=== PATIENT | male | born 1990 | race Caucasian/White ===

== ENCOUNTER 2018-04-25 02:51 | Emergency (ER) | payer OTHER, SELFPAY ==
[2018-04-25 02:58] VITALS: BP 128/75; PULSE 89; RESP 16; TEMP 36.5; O2SAT 99; BMI 25.1
[2018-04-25 03:15] LABS: Glucose Urine UA NEGATIVE (Negative); Nitrite Urine UA NEGATIVE (Negative); Occult Blood Urine UA 3+ (Negative); Protein Urine UA 2+ (Negative); Specific Gravity Urine UA 1.025 (1.000-1.035); pH Urine UA 6.5 (4.5-8.0)
[2018-04-25 03:19] LABS: Appearance Urine UA Cloudy; Bilirubin Urine UA Negative (NEGATIVE)
[2018-04-25 03:21] LABS: Color Urine UA RED
[2018-04-25 03:23] LABS: Bacteria Urine None Seen
[2018-04-25] MEDS: KETOROLAC 30 MG/ML VIAL 15 MG IV (03:24)
[2018-04-25] MEDS: ONDANSETRON 4 MG/2 ML INJ IV (03:24)
[2018-04-25] MEDS: SODIUM CHLORIDE 0.9% 1,000 ML 1000 ML IV (03:24)
[2018-04-25 03:31] LABS: Add Manual Diff / Slide Review NO; Basophils Absolute Auto 100 /uL (0-100); Eosinophils Absolute Auto 300 /uL (0-450); Eosinophils Percent Auto 5.1 % (2-4); Hematocrit 43.2 % (41-53); Hemoglobin 14.6 g/dL (13.5-17.5); Lymphocytes Absolute Auto 2600 /uL (1100-4500); Lymphocytes Percent Auto 46.4 % (25-40); Mean Corpuscular HGB Conc 33.9 % (30-36); Mean Corpuscular Hemoglobin 30.5 PG (26-34); Mean Corpuscular Volume 90.1 fL (80-100); Monocytes Absolute Auto 500 /uL (0-900); Monocytes Percent Auto 8.1 % (3-14); Neutrophils Absolute Auto 2200 /uL (1500-7000); Neutrophils Percent Auto 39.4 % (50-75); Platelet Count 271 X10^3/uL (150-400); Red Blood Cell Count 4.79 X10^6/uL (4.5-5.9); Red Cell Distribution Width 13.5 % (11.6-14.8); White Blood Cell Count 5.7 X10^3/uL (4.5-11.0)
[2018-04-25 03:34] LABS: Culture Indicated Urine Cult Not Indicated; RBC Urine >100/HPF (0-5/HPF); WBC Urine 0-1/HPF (0-5/HPF)
--- NOTE | 2018-04-25 03:35 | ED.MALEGU ---
HPI - Male Genitourinary General Chief complaint: Urogenital-Male Stated complaint: LEFT SIDE PAIN Time Seen by Provider: 04/25/18 02:55 Source: patient and family Mode of arrival: ambulatory Limitations: no limitations History of Present Illness HPI Narrative: 27-year-old male smoker with history of kidney stones presents with his significant other in the chief complaint of sudden onset left flank pain with radiation into his groin. He denies provocation or palliation. He denies fever or chills. He has had no dysuria, frequency or urgency. He denies any injury. He states this feels similar to kidney stone he suffered about 8 years ago Onset (ago): hour(s) Duration: intermittent and improved Location: left flank Radiation: left inguinal region Quality: burning and stabbing Relieving factors: none Exacerbating factors: none new medication Related Data Previous Rx's Medication Instructions Recorded bacitracin zinc 500 unit TOPICAL BID 7 Days #0 gm 07/12/16 tramadol 0 tab PO Q6HP PRN #8 tab 07/12/16 hydrocodone-acetaminophen 1 tab PO Q4-6H PRN #10 tab 04/25/18 ketorolac 10 mg PO Q6H PRN #14 tab 04/25/18 ondansetron 4 mg PO TID-QID PRN #10 tab 04/25/18 tamsulosin [Flomax] 0.4 mg PO DAILY #10 cap 04/25/18 Allergies Allergy/AdvReac Type Severity Reaction Status Date / Time No Known Drug Allergies Allergy Verified 04/25/18 02:58 Review of Systems Constitutional Denies chills, Denies fever(s), Denies lethargy and Denies weakness Eyes Denies change in vision, Denies eye discharge, Denies irritation and Denies loss of vision ENT Ears, Nose, Mouth, and Throat: Denies change in voice, Denies neck pain and Denies sore throat Cardiovascular Denies chest pain, Denies irregular heart rhythm, Denies lightheadedness, Denies palpitations, Denies dyspnea, Denies dyspnea on exertion and Denies orthopnea Respiratory Denies cough, Denies dyspnea, Denies dyspnea on exertion and Denies wheezing Gastrointestinal Gastrointestinal: Denies abdominal pain, Denies change in bowel habits, Denies diarrhea, Denies nausea and Denies vomiting Genitourinary Denies hematuria, Reports flank pain, Denies urinary incontinence and Denies urinary urgency Musculoskeletal Denies neck pain Integumentary/Breasts Denies pruritus, Denies erythema, Denies rash and Denies wounds Neurologic Denies confusion, Denies loss of vision and Denies weakness Psychiatric Denies anxiety, Denies confusion, Denies depression, Denies homicidal ideation and Denies suicidal ideation Endocrine Denies palpitations Hematologic/Lymphatic Denies easy bruising Allergic/Immunologic Denies wheezing PFSH Social History Smoking Status: Current every day smoker Social History Smoking Status: Current every day smoker Exam Narrative Exam Narrative: GENERAL: 29-year-old male is in mild distress, rubbing his left flank and groin HEAD: Atraumatic. Normocephalic. No temporal or scalp tenderness. EYES: Pupils equal round and reactive. Extraocular motions intact. No scleral icterus. No injection or drainage. ENT: Nose without bleeding, purulent drainage or septal hematoma. Throat without erythema, tonsillar hypertrophy or exudate. Uvula midline. Airway patent. NECK: Trachea midline. No JVD or lymphadenopathy. Supple, nontender, no meningeal signs. CARDIOVASCULAR: Regular rate and rhythm without murmurs, gallops, or rubs. RESPIRATORY: Clear to auscultation. Breath sounds equal bilaterally. No wheezes, rales, or rhonchi. GASTROINTESTINAL: Abdomen soft, non-tender, nondistended. No hepato-splenomegaly, or palpable masses. No guarding. EXTREMITIES: No clubbing, cyanosis, or edema. No joint tenderness, effusion, or edema noted. BACK: Nontender without deformity or crepitance. No flank tenderness. NEURO: AOx3. SKIN: No rash or erythema. Initial Vital Signs Initial Vital Signs: Vital Signs Temperature 97.7 F 04/25/18 02:58 Pulse Rate 89 04/25/18 02:58 Respiratory Rate 16 04/25/18 02:58 Blood Pressure 128/75 04/25/18 02:58 Pulse Oximetry 99 04/25/18 02:58 Course Orders Ordered: ED Orders 04/25/18 03:01 Urinalysis Sreen (Dip Only) Stat Urine Microscopic Stat 04/25/18 03:23 Basic Metabolic Panel Stat Complete Blood Count AUTO DIFF Stat Discontinued Medications Sodium Chloride (Normal Saline 0.9%) 1,000 mls @ 1,000 mls/hr IV BOLUS ONE Stop: 04/25/18 04:11 Last Admin: 04/25/18 03:24 Dose: 1,000 mls/hr Ketorolac Tromethamine (Toradol) 15 mg IV NOW ONE Stop: 04/25/18 03:13 Last Admin: 04/25/18 03:24 Dose: 15 mg Ondansetron HCl (Zofran) 4 mg IV NOW ONE Stop: 04/25/18 03:13 Last Admin: 04/25/18 03:24 Dose: 4 mg Reevaluation(s) Reevaluation #1: Patient has had complete resolution of symptoms after above-stated therapies Vital Signs - 8 hr 04/25/18 02:58 Temperature 97.7 F Pulse Rate 89 Respiratory Rate 16 Blood Pressure 128/75 Pulse Oximetry 99 MDM - Male Genitourinary Lab Data Result diagrams: 04/25/18 03:23 04/25/18 03:23 Lab Results 04/25/18 04/25/18 04/25/18 Range/Units 03:01 03:23 03:23 WBC 5.7 (4.5-11.0) X10^3/uL RBC 4.79 (4.5-5.9) X10^6/uL Hgb 14.6 (13.5-17.5) g/dL Hct 43.2 (41-53) % MCV 90.1 (80-100) fL MCH 30.5 (26-34) PG MCHC 33.9 (30-36) % RDW 13.5 (11.6-14.8) % Plt Count 271 (150-400) X10^3/uL Neut % (Auto) 39.4 L (50-75) % Lymph % (Auto) 46.4 H (25-40) % [place] % (Auto) 8.1 (3-14) % Eos % (Auto) 5.1 H (2-4) % Baso % (Auto) 1.0 (0-2) % Neut # (Auto) 2200 (9837-5915) /uL Lymph # (Auto) 2600 (7613-7948) /uL [place] # (Auto) 500 (0-900) /uL Eos # (Auto) 300 (0-450) /uL Baso # (Auto) 100 (0-100) /uL Sodium 139 (137-145) mmol/L Potassium 3.9 (3.4-5.1) mmol/L Chloride 105 (98-107) mmol/L Carbon Dioxide 27 (22-32) mmol/L BUN 12 (9-20) mg/dL Creatinine 0.80 (0.66-1.25) mg/dL Estimated GFR > 60.0 (>60) mL/min BUN/Creatinine Ratio 15.0 (6-22) Glucose 89 (70-100) mg/dL Calcium 8.7 (8.4-10.2) mg/dL Urine Color Red Urine Appearance Cloudy Urine pH 6.5 (4.5-8.0) Ur Specific [place] 1.025 (1.000-1.035) Urine Protein 2+ H (Negative) Urine Glucose (UA) Negative (Negative) g/dL 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 Cult not indicated MDM Narrative Medical decision making narrative: Multiple etiologies for patient's symptoms considered including: [Ureterolithiasis versus pyelonephritis versus bowel trouble reverse musculoskeletal injury versus other] Patient's symptoms improved or duration of stay with above-stated therapies. Findings and discharge diagnosis discussed with patient/family followed by verbalization of understanding Return precautions discussed with patient/family whom verbalize understanding. Discharge Plan Departure Patient Disposition: Home Clinical Impression: Ureterolithiasis Instructions: DI for Kidney Stones Activity Restrictions/Additional Instructions: *You have been diagnosed with [ kidney stones] *What to do: *Take medications as directed *Follow up with your primary care provider in 2-3 days, call for an appointment. Let them know you were seen in the Emergency Department and that we ask that you be seen in follow up. Also you have been given contact info for a local urologist should you need help with ongoing pain *Return to ER if you should have any new, worsening or concerning symptoms, such as [worsening pain, persistent vomiting, fever greater than 101 F. ] Prescriptions: New hydrocodone-acetaminophen 5-325 mg tablet 1 tab PO Q4-6H PRN (Reason: pain) Qty: 10 RF: 0 ketorolac 10 mg tablet 10 mg PO Q6H PRN (Reason: pain) Qty: 14 RF: 0 tamsulosin [Flomax] 0.4 mg capsule 0.4 mg PO DAILY Qty: 10 RF: 0 ondansetron 4 mg tablet,disintegrating 4 mg PO TID-QID PRN (Reason: nausea and vomiting) Qty: 10 RF: 0 No Action bacitracin zinc 28.35 GM ointment 500 unit Topical BID 7 Days Qty: 0 RF: 0 tramadol 50 MG tablet PO Q6HP PRNQty: 8 RF: 0 Referrals: William Abdul MD [Non-Staff] -
[2018-04-25 03:41] LABS: Blood Urea Nitrogen 12 mg/dL (9-20); Calcium 8.7 mg/dL (8.4-10.2); Carbon Dioxide 27 mmol/L (22-32); Chloride 105 mmol/L (98-107); Estimated Glomerular Filt Rate > 60.0 mL/min (>60); Glucose 89 mg/dL (70-100); HEMOLYSIS < 15 (0-50); Potassium 3.9 mmol/L (3.4-5.1); Sodium 139 mmol/L (137-145)
--- NOTE | 2018-04-25 04:19 | ED_ITS ---
HPI - Male Genitourinary General Chief complaint: Urogenital-Male Stated complaint: LEFT SIDE PAIN Time Seen by Provider: 04/25/18 02:55 Source: patient and family Mode of arrival: ambulatory Limitations: no limitations History of Present Illness HPI Narrative: 27-year-old male smoker with history of kidney stones presents with his significant other in the chief complaint of sudden onset left flank pain with radiation into his groin. He denies provocation or palliation. He denies fever or chills. He has had no dysuria, frequency or urgency. He denies any injury. He states this feels similar to kidney stone he suffered about 8 years ago Onset (ago): hour(s) Duration: intermittent and improved Location: left flank Radiation: left inguinal region Quality: burning and stabbing Relieving factors: none Exacerbating factors: none new medication Related Data Previous Rx's Medication Instructions Recorded bacitracin zinc 500 unit TOPICAL BID 7 Days #0 gm 07/12/16 tramadol 0 tab PO Q6HP PRN #8 tab 07/12/16 hydrocodone-acetaminophen 1 tab PO Q4-6H PRN #10 tab 04/25/18 ketorolac 10 mg PO Q6H PRN #14 tab 04/25/18 ondansetron 4 mg PO TID-QID PRN #10 tab 04/25/18 tamsulosin [Flomax] 0.4 mg PO DAILY #10 cap 04/25/18 Allergies Allergy/AdvReac Type Severity Reaction Status Date / Time No Known Drug Allergies Allergy Verified 04/25/18 02:58 Review of Systems Constitutional Denies chills, Denies fever(s), Denies lethargy and Denies weakness Eyes Denies change in vision, Denies eye discharge, Denies irritation and Denies loss of vision ENT Ears, Nose, Mouth, and Throat: Denies change in voice, Denies neck pain and Denies sore throat Cardiovascular Denies chest pain, Denies irregular heart rhythm, Denies lightheadedness, Denies palpitations, Denies dyspnea, Denies dyspnea on exertion and Denies orthopnea Respiratory Denies cough, Denies dyspnea, Denies dyspnea on exertion and Denies wheezing Gastrointestinal Gastrointestinal: Denies abdominal pain, Denies change in bowel habits, Denies diarrhea, Denies nausea and Denies vomiting Genitourinary Denies hematuria, Reports flank pain, Denies urinary incontinence and Denies urinary urgency Musculoskeletal Denies neck pain Integumentary/Breasts Denies pruritus, Denies erythema, Denies rash and Denies wounds Neurologic Denies confusion, Denies loss of vision and Denies weakness Psychiatric Denies anxiety, Denies confusion, Denies depression, Denies homicidal ideation and Denies suicidal ideation Endocrine Denies palpitations Hematologic/Lymphatic Denies easy bruising Allergic/Immunologic Denies wheezing PFSH Social History Smoking Status: Current every day smoker Social History Smoking Status: Current every day smoker Exam Narrative Exam Narrative: GENERAL: 29-year-old male is in mild distress, rubbing his left flank and groin HEAD: Atraumatic. Normocephalic. No temporal or scalp tenderness. EYES: Pupils equal round and reactive. Extraocular motions intact. No scleral icterus. No injection or drainage. ENT: Nose without bleeding, purulent drainage or septal hematoma. Throat without erythema, tonsillar hypertrophy or exudate. Uvula midline. Airway patent. NECK: Trachea midline. No JVD or lymphadenopathy. Supple, nontender, no meningeal signs. CARDIOVASCULAR: Regular rate and rhythm without murmurs, gallops, or rubs. RESPIRATORY: Clear to auscultation. Breath sounds equal bilaterally. No wheezes , rales, or rhonchi. GASTROINTESTINAL: Abdomen soft, non-tender, nondistended. No hepato-splenomegaly , or palpable masses. No guarding. EXTREMITIES: No clubbing, cyanosis, or edema. No joint tenderness, effusion, or edema noted. BACK: Nontender without deformity or crepitance. No flank tenderness. NEURO: AOx3. SKIN: No rash or erythema. Initial Vital Signs Initial Vital Signs: Vital Signs Temperature 97.7 F 04/25/18 02:58 Pulse Rate 89 04/25/18 02:58 Respiratory Rate 16 04/25/18 02:58 Blood Pressure 128/75 04/25/18 02:58 Pulse Oximetry 99 04/25/18 02:58 Course Orders Ordered: ED Orders 04/25/18 03:01 Urinalysis Sreen (Dip Only) Stat Urine Microscopic Stat 04/25/18 03:23 Basic Metabolic Panel Stat Complete Blood Count AUTO DIFF Stat Discontinued Medications Sodium Chloride (Normal Saline 0.9%) 1,000 mls @ 1,000 mls/hr IV BOLUS ONE Stop: 04/25/18 04:11 Last Admin: 04/25/18 03:24 Dose: 1,000 mls/hr Ketorolac Tromethamine (Toradol) 15 mg IV NOW ONE Stop: 04/25/18 03:13 Last Admin: 04/25/18 03:24 Dose: 15 mg Ondansetron HCl (Zofran) 4 mg IV NOW ONE Stop: 04/25/18 03:13 Last Admin: 04/25/18 03:24 Dose: 4 mg Reevaluation(s) Reevaluation #1: Patient has had complete resolution of symptoms after above- stated therapies Vital Signs - 8 hr 04/25/18 02:58 Temperature 97.7 F Pulse Rate 89 Respiratory Rate 16 Blood Pressure 128/75 Pulse Oximetry 99 MDM - Male Genitourinary Lab Data Result diagrams: 04/25/18 03:23 04/25/18 03:23 Lab Results 04/25/18 04/25/18 04/25/18 Range/Units 03:01 03:23 03:23 WBC 5.7 (4.5-11.0) X10^3/uL RBC 4.79 (4.5-5.9) X10^6/uL Hgb 14.6 (13.5-17.5) g/dL Hct 43.2 (41-53) % MCV 90.1 (80-100) fL MCH 30.5 (26-34) PG MCHC 33.9 (30-36) % RDW 13.5 (11.6-14.8) % Plt Count 271 (150-400) X10^3/uL Neut % (Auto) 39.4 L (50-75) % Lymph % (Auto) 46.4 H (25-40) % [place] % (Auto) 8.1 (3-14) % Eos % (Auto) 5.1 H (2-4) % Baso % (Auto) 1.0 (0-2) % Neut # (Auto) 2200 (5935-3498) /uL Lymph # (Auto) 2600 (4611-2035) /uL [place] # (Auto) 500 (0-900) /uL Eos # (Auto) 300 (0-450) /uL Baso # (Auto) 100 (0-100) /uL Sodium 139 (137-145) mmol/L Potassium 3.9 (3.4-5.1) mmol/L Chloride 105 (98-107) mmol/L Carbon Dioxide 27 (22-32) mmol/L BUN 12 (9-20) mg/dL Creatinine 0.80 (0.66-1.25) mg/dL Estimated GFR > 60.0 (>60) mL/min BUN/Creatinine Ratio 15.0 (6-22) Glucose 89 (70-100) mg/dL Calcium 8.7 (8.4-10.2) mg/dL Urine Color Red Urine Appearance Cloudy Urine pH 6.5 (4.5-8.0) Ur Specific [place] 1.025 (1.000-1.035) Urine Protein 2+ H (Negative) Urine Glucose (UA) Negative (Negative) g/dL 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 Cult not indicated MDM Narrative Medical decision making narrative: Multiple etiologies for patient's symptoms considered including: [Ureterolithiasis versus pyelonephritis versus bowel trouble reverse musculoskeletal injury versus other] Patient's symptoms improved or duration of stay with above-stated therapies. Findings and discharge diagnosis discussed with patient/family followed by verbalization of understanding Return precautions discussed with patient/family whom verbalize understanding. Discharge Plan Departure Patient Disposition: Home Clinical Impression: Ureterolithiasis Instructions: DI for Kidney Stones Activity Restrictions/Additional Instructions: *You have been diagnosed with [ kidney stones] *What to do: *Take medications as directed *Follow up with your primary care provider in 2-3 days, call for an appointment. Let them know you were seen in the Emergency Department and that we ask that you be seen in follow up. Also you have been given contact info for a local urologist should you need help with ongoing pain *Return to ER if you should have any new, worsening or concerning symptoms , such as [worsening pain, persistent vomiting, fever greater than 101 F. ] Prescriptions: New hydrocodone-acetaminophen 5-325 mg tablet 1 tab PO Q4-6H PRN (Reason: pain) Qty: 10 RF: 0 ketorolac 10 mg tablet 10 mg PO Q6H PRN (Reason: pain) Qty: 14 RF: 0 tamsulosin [Flomax] 0.4 mg capsule 0.4 mg PO DAILY Qty: 10 RF: 0 ondansetron 4 mg tablet,disintegrating 4 mg PO TID-QID PRN (Reason: nausea and vomiting) Qty: 10 RF: 0 No Action bacitracin zinc 28.35 GM ointment 500 unit Topical BID 7 Days Qty: 0 RF: 0 tramadol 50 MG tablet PO Q6HP PRNQty: 8 RF: 0 Referrals: William Abdul MD [Non-Staff] -
[2018-04-25 04:21] VITALS: BP 114/65; PULSE 64; RESP 15; O2SAT 100
== END 2018-04-25 04:22 | disposition home or self-care (01) ==
PROVIDERS: Emergency Provider Emergency Medicine
DX: N20.1 Calculus of ureter (principal)
CPT/HCPCS: 36591; 80048; 81003; 81015; 85025; 96361; 96374; 96375; 99283; 99284; J1885; J2405

== ENCOUNTER 2018-05-08 18:30 | Emergency (ER) | payer OTHER, SELFPAY ==
[2018-05-08 18:34] VITALS: BP 131/89; PULSE 87; RESP 16; TEMP 35.9; O2SAT 98; BMI 31.3
[2018-05-08 18:59] LABS: Bacteria Urine None Seen
[2018-05-08 19:01] LABS: Add Manual Diff / Slide Review NO; Basophils Absolute Auto 100 /uL (0-100); Basophils Percent Auto 0.8 % (0-2); Eosinophils Absolute Auto 100 /uL (0-450); Eosinophils Percent Auto 1.7 % (2-4); Hematocrit 44.3 % (41-53); Hemoglobin 14.9 g/dL (13.5-17.5); Lymphocytes Absolute Auto 2400 /uL (1100-4500); Lymphocytes Percent Auto 33.3 % (25-40); Mean Corpuscular HGB Conc 33.6 % (30-36); Mean Corpuscular Hemoglobin 30.4 PG (26-34); Mean Corpuscular Volume 90.4 fL (80-100); Monocytes Absolute Auto 500 /uL (0-900); Monocytes Percent Auto 6.6 % (3-14); Neutrophils Absolute Auto 4100 /uL (1500-7000); Neutrophils Percent Auto 57.6 % (50-75); Platelet Count 254 X10^3/uL (150-400); Red Cell Distribution Width 13.2 % (11.6-14.8); White Blood Cell Count 7.1 X10^3/uL (4.5-11.0)
[2018-05-08 19:10] LABS: RBC Urine 30-100/HPF (0-5/HPF); WBC Urine 0-1/HPF (0-5/HPF)
[2018-05-08 19:11] LABS: Culture Indicated Urine Cult Not Indicated; Mucus Urine 3+ (Negative); Squamous Epithelial Cell Urine 0-1 /HPF
[2018-05-08 19:13] LABS: Alanine Aminotransferase 43 IU/L (21-72); Albumin 4.7 g/dL (3.5-5.0); Albumin Globulin Ratio 1.6 (1.0-2.8); Alkaline Phosphatase 53 U/L (38-126); Aspartate Aminotransferase 31 IU/L (17-59); BUN Creatinine Ratio 15.6 (6-22); Blood Urea Nitrogen 14 mg/dL (9-20); Calcium 9.5 mg/dL (8.4-10.2); Carbon Dioxide 29 mmol/L (22-32); Chloride 100 mmol/L (98-107); Estimated Glomerular Filt Rate > 60.0 mL/min (>60); Globulin 2.9 g/dL (1.7-4.1); Glucose 93 mg/dL (70-100); HEMOLYSIS < 15 (0-50); Lipase 34 U/L (23-300); Potassium 3.7 mmol/L (3.4-5.1); Sodium 139 mmol/L (137-145); Total Protein 7.6 g/dL (6.3-8.2)
--- NOTE | 2018-05-08 19:16 | ED.ABDPAIN ---
HPI - Abdominal Pain <Denisa Hernandez PA-C - Last Filed: 05/08/18 22:04> General Chief Complaint: Abdominal Pain Stated Complaint: Thinks kidney stone Time Seen by Provider: 05/08/18 18:56 Source: patient Mode of arrival: ambulatory Limitations: no limitations History of Present Illness HPI narrative: This 27-year-old male returns with recurrent left-sided flank/abdominal pain. He was seen here a couple of weeks ago with pain that he felt was a recurrent kidney stone. He states that he was actually feeling better after last visit and went snowboarding last Friday, however yesterday he started having pain in the flank, low back and left lower abdomen which has progressively worsened today. He states that the pain is ?stabbing?, and does not seem to have exacerbating or alleviating features. He states he has had hematuria with kidney stones in the past but none today. He denies any dysuria, frequency or urgency. He denies any STD concerns or discharge. He denies any bowel habit changes. He denies any chest pain, dyspnea, or recent illness. He felt warm yesterday and thought he might have had a fever, no temperature taken. Related Data Previous Rx's Medication Instructions Recorded bacitracin zinc 500 unit TOPICAL BID 7 Days #0 gm 07/12/16 tramadol 0 tab PO Q6HP PRN #8 tab 07/12/16 hydrocodone-acetaminophen 1 tab PO Q4-6H PRN #10 tab 04/25/18 ketorolac 10 mg PO Q6H PRN #14 tab 04/25/18 ondansetron 4 mg PO TID-QID PRN #10 tab 04/25/18 tamsulosin [Flomax] 0.4 mg PO DAILY #10 cap 04/25/18 hydrocodone-acetaminophen [[place]] 1 tab PO Q4-6H PRN #10 tab 05/08/18 tamsulosin 0.4 mg PO DAILY #7 cap 05/08/18 Allergies Allergy/AdvReac Type Severity Reaction Status Date / Time No Known Drug Allergies Allergy Verified 05/08/18 18:34 Review of Systems <Denisa Hernandez PA-C - Last Filed: 05/08/18 22:04> Review of Systems ROS Unobtainable: All systems reviewed & are unremarkable except as noted in HPI and below PFSH <Denisa Hernandez PA-C - Last Filed: 05/08/18 22:04> Medical History Ureterolithiasis (Resolved) Surgical History No pertinent past surgical history (Chronic) Family History Father Kidney stones Diverticulitis Social History Smoking Status: Current every day smoker Social History Smoking Status: Current every day smoker Comment: + THC Exam <Denisa Hernandez PA-C - Last Filed: 05/08/18 22:04> Narrative Exam Narrative: GENERAL APPEARANCE: Patient appears somewhat uncomfortable, but in NAD HEENT: PERRL, EOMI, no scleral icterus NECK: Supple LUNGS: Clear to auscultation bilaterally. HEART: Rate and rhythm regular, normal S1 and S2, no S3 or S4. ABDOMEN: Soft, nondistended, bowel sounds present x 4 quadrants, no masses palpable, no hepatosplenomegaly. No CVAT. Tender from left lateral flank to left lower quadrant, most over the left lower quadrant, +rebound. No tenderness elsewhere in the abdomen EXTREMITIES: No edema, no cyanosis DERMATOLOGIC: No jaundice or exanthem NEUROLOGIC: Alert and oriented with normal speech and coordination Initial Vital Signs Initial Vital Signs: Vital Signs Temperature 96.7 F L 05/08/18 18:34 Pulse Rate 87 05/08/18 18:34 Respiratory Rate 16 05/08/18 18:34 Blood Pressure 131/89 05/08/18 18:34 Pulse Oximetry 98 05/08/18 18:34 <Bakari Crawford MD - Last Filed: 05/09/18 02:30> Initial Vital Signs Initial Vital Signs: Vital Signs Temperature 96.7 F L 05/08/18 18:34 Pulse Rate 87 05/08/18 18:34 Respiratory Rate 16 05/08/18 18:34 Blood Pressure 131/89 05/08/18 18:34 Pulse Oximetry 98 05/08/18 18:34 Course <Denisa Hernandez PA-C - Last Filed: 05/08/18 22:04> Additional Information: Patient is feeling significantly improved prior to discharge and feels like he can go home and rest. He was started on Flomax, will continue pain medications. He has out of state insurance and is able to reach them tomorrow, so have given him local Urology information and he will talk with them about referral for appointment early next week. He agreed to return to ED if any acutely worsening symptoms over the weekend. Reviewed findings and plan with Dr. Crawford who is in agreement Orders Ordered: ED Orders 05/08/18 18:50 Complete Blood Count AUTO DIFF Stat Comprehensive Metabolic Panel Stat Lipase Stat Partial Thromboplastin Time Stat Prothrombin Time INR Stat Urine Microscopic Stat 05/08/18 19:30 CT abdomen pelvis w con Stat Discontinued Medications Hydrocodone Bitart/Acetaminophen (Vicodin Prepack) 1 bottle MISC SEEINSTR ONE Stop: 05/08/18 21:22 Last Admin: 05/08/18 21:39 Dose: 1 bottle Sodium Chloride (Normal Saline 0.9%) 1,000 mls @ 1,000 mls/hr IV BOLUS ONE Stop: 05/08/18 20:29 Last Infusion: 05/08/18 21:52 Dose: 0 mls/hr Admin: 05/08/18 19:51 Dose: 1,000 mls/hr Ketorolac Tromethamine (Toradol) 30 mg IV NOW ONE Stop: 05/08/18 19:31 Last Admin: 05/08/18 19:52 Dose: 30 mg Ondansetron HCl (Zofran) 4 mg IV NOW ONE Stop: 05/08/18 19:31 Last Admin: 05/08/18 19:52 Dose: 4 mg Tamsulosin HCl (Flomax) 0.4 mg PO NOW ONE Stop: 05/08/18 21:22 Last Admin: 05/08/18 21:39 Dose: 0.4 mg Vital Signs - 8 hr 05/08/18 18:34 05/08/18 21:34 05/08/18 21:53 Temperature 96.7 F L Pulse Rate 87 63 63 Respiratory Rate 16 16 14 Blood Pressure 131/89 117/63 Blood Pressure [Left Arm] 117/63 Pulse Oximetry 98 98 98 <Bakari Crawford MD - Last Filed: 05/09/18 02:30> Orders Ordered: ED Orders 05/08/18 18:50 Complete Blood Count AUTO DIFF Stat Comprehensive Metabolic Panel Stat Lipase Stat Partial Thromboplastin Time Stat Prothrombin Time INR Stat Urine Microscopic Stat 05/08/18 19:30 CT abdomen pelvis w con Stat Discontinued Medications Hydrocodone Bitart/Acetaminophen (Vicodin Prepack) 1 bottle MISC SEEINSTR ONE Stop: 05/08/18 21:22 Last Admin: 05/08/18 21:39 Dose: 1 bottle Sodium Chloride (Normal Saline 0.9%) 1,000 mls @ 1,000 mls/hr IV BOLUS ONE Stop: 05/08/18 20:29 Last Infusion: 05/08/18 21:52 Dose: 0 mls/hr Admin: 05/08/18 19:51 Dose: 1,000 mls/hr Ketorolac Tromethamine (Toradol) 30 mg IV NOW ONE Stop: 05/08/18 19:31 Last Admin: 05/08/18 19:52 Dose: 30 mg Ondansetron HCl (Zofran) 4 mg IV NOW ONE Stop: 05/08/18 19:31 Last Admin: 05/08/18 19:52 Dose: 4 mg Tamsulosin HCl (Flomax) 0.4 mg PO NOW ONE Stop: 05/08/18 21:22 Last Admin: 05/08/18 21:39 Dose: 0.4 mg Vital Signs - 8 hr 05/08/18 18:34 05/08/18 21:34 05/08/18 21:53 Temperature 96.7 F L Pulse Rate 87 63 63 Respiratory Rate 16 16 14 Blood Pressure 131/89 117/63 Blood Pressure [Left Arm] 117/63 Pulse Oximetry 98 98 98 MDM - Abdominal Pain <Denisa Hernandez PA-C - Last Filed: 05/08/18 22:04> Lab Data Attestation: I reviewed the patient's lab results. Result diagrams: 05/08/18 18:50 05/08/18 18:50 Lab Results 05/08/18 05/08/18 05/08/18 Range/Units 18:50 18:50 18:50 WBC 7.1 (4.5-11.0) X10^3/uL RBC 4.90 (4.5-5.9) X10^6/uL Hgb 14.9 (13.5-17.5) g/dL Hct 44.3 (41-53) % MCV 90.4 (80-100) fL MCH 30.4 (26-34) PG MCHC 33.6 (30-36) % RDW 13.2 (11.6-14.8) % Plt Count 254 (150-400) X10^3/uL Neut % (Auto) 57.6 (50-75) % Lymph % (Auto) 33.3 (25-40) % [place] % (Auto) 6.6 (3-14) % Eos % (Auto) 1.7 L (2-4) % Baso % (Auto) 0.8 (0-2) % Neut # (Auto) 4100 (4795-6738) /uL Lymph # (Auto) 2400 (8190-9408) /uL [place] # (Auto) 500 (0-900) /uL Eos # (Auto) 100 (0-450) /uL Baso # (Auto) 100 (0-100) /uL PT 12.3 (10.1-12.7) SECONDS INR 1.1 (0.9-1.3) APTT 32 (26.4-36.2) SECONDS Sodium 139 (137-145) mmol/L Potassium 3.7 (3.4-5.1) mmol/L Chloride 100 (98-107) mmol/L Carbon Dioxide 29 (22-32) mmol/L BUN 14 (9-20) mg/dL Creatinine 0.90 (0.66-1.25) mg/dL Estimated GFR > 60.0 (>60) mL/min BUN/Creatinine Ratio 15.6 (6-22) Glucose 93 (70-100) mg/dL Calcium 9.5 (8.4-10.2) mg/dL Total Bilirubin 1.0 (0.2-1.3) mg/dL AST 31 (17-59) IU/L ALT 43 (21-72) IU/L Alkaline Phosphatase 53 (38-126) U/L Total Protein 7.6 (6.3-8.2) g/dL Albumin 4.7 (3.5-5.0) g/dL Globulin 2.9 (1.7-4.1) g/dL Albumin/Globulin Ratio 1.6 (1.0-2.8) Lipase 34 (23-300) U/L Urine RBC (0-5/HPF) Urine WBC (0-5/HPF) Ur Squamous Epith Cells Urine Bacteria (None) Urine Mucus (Negative) Ur Culture Indicated? 05/08/18 Range/Units 18:50 WBC (4.5-11.0) X10^3/uL RBC (4.5-5.9) X10^6/uL Hgb (13.5-17.5) g/dL Hct (41-53) % MCV (80-100) fL MCH (26-34) PG MCHC (30-36) % RDW (11.6-14.8) % Plt Count (150-400) X10^3/uL Neut % (Auto) (50-75) % Lymph % (Auto) (25-40) % [place] % (Auto) (3-14) % Eos % (Auto) (2-4) % Baso % (Auto) (0-2) % Neut # (Auto) (0721-3326) /uL Lymph # (Auto) (0662-8002) /uL [place] # (Auto) (0-900) /uL Eos # (Auto) (0-450) /uL Baso # (Auto) (0-100) /uL PT (10.1-12.7) SECONDS INR (0.9-1.3) APTT (26.4-36.2) SECONDS Sodium (137-145) mmol/L Potassium (3.4-5.1) mmol/L Chloride (98-107) mmol/L Carbon Dioxide (22-32) mmol/L BUN (9-20) mg/dL Creatinine (0.66-1.25) mg/dL Estimated GFR (>60) mL/min BUN/Creatinine Ratio (6-22) Glucose (70-100) mg/dL Calcium (8.4-10.2) mg/dL Total Bilirubin (0.2-1.3) mg/dL AST (17-59) IU/L ALT (21-72) IU/L Alkaline Phosphatase (38-126) U/L Total Protein (6.3-8.2) g/dL Albumin (3.5-5.0) g/dL Globulin (1.7-4.1) g/dL Albumin/Globulin Ratio (1.0-2.8) Lipase (23-300) U/L Urine RBC 30-100/hpf H (0-5/HPF) Urine WBC 0-1/hpf (0-5/HPF) Ur Squamous Epith Cells 0-1 /hpf Urine Bacteria None seen (None) Urine Mucus 3+ H (Negative) Ur Culture Indicated? Cult not indicated Point of care testing: Urine Dip Bedside Urine Glucose Negative Bedside Urine Bilirubin - Negative Bedside Urine Ketone +++ 80 Urine Specific [place] 1.030 Bedside Urine Occult Blood +++ Bedside Urine pH 6.0 Bedside Urine Protein + 30 Bedside Urine Urobilinogen - Negative Bedside Urine Nitrite - Negative Bedside Urine Leukocytes - Negative Esterase Imaging Data CT scan - abdomen: Radiologist's impression: [address] [address] [address] Scan Report Signed Patient: Brian Massey TMR#: [id number] : 1990Acct:[id number] Age/Sex: 27 MDate of Service: 05/08/18 Loc: ED Accession Number: [id number] Procedure: CT abdomen pelvis w con Ordering Provider: Denisa Hernandez P.A-C PROCEDURE: CT ABDOMEN PELVIS W CON INDICATIONS: left upper and lower quadrant pain, rebound TECHNIQUE: After the administration of intravenous contrast, 5 mm thick sections acquired from the diaphragm to the symphysis. 5 mm coronal and sagittal reformats were acquired. For radiation dose reduction, the following was used: automated exposure control, adjustment of mA and/or kV according to patient size. COMPARISON: None. FINDINGS: Image quality: Excellent. ABDOMEN: Lung bases: There is mild dependent atelectasis. Heart size is normal. Solid organs: There is mild focal fatty infiltration in the anterior left hepatic lobe. Gallbladder appears within normal limits without calcified gallstones. Biliary system is non dilated. Pancreas enhances normally. Spleen is normal in size and enhancement. No adrenal nodules. There is an obstructive stone or cluster of small stones in the proximal left ureter at the ureteropelvic junction. This measures up to approximately 7 mm in aggregate dimension. There is mild left hydronephrosis with mild urothelial thickening. There is mild perinephric and perirenal stranding. The right kidney demonstrates no hydronephrosis. There are a few, at least 3 on the right and at least 2 on the left, nonobstructing renal stones bilaterally. These measure up to approximately 3 mm in each kidney. The right ureter is normal in caliber. No perinephric fluid collections. Peritoneum and bowel: Bowel loops demonstrate normal wall thickness and caliber. The appendix is normal in appearance. There is colonic diverticulosis without acute diverticulitis. No free fluid or air. Nodes and vessels: No retroperitoneal or mesenteric adenopathy by size criteria. Aorta and inferior vena cava are normal in size. Miscellaneous: No ventral hernias. PELVIS: Genitourinary: Bladder wall thickness is normal. Miscellaneous: No inguinal hernias or adenopathy. Bones: No suspicious bony lesions. No vertebral body compression fractures. IMPRESSION: 1. Obstructing proximal left urinary stone or cluster of stones measuring up to 7 mm with associated mild left hydronephrosis. 2. Associated perinephric and periureteral fat stranding with mild urothelial thickening likely related to obstruction but correlation is recommended with urinalysis for possible urinary tract infection. 3. Colonic diverticulosis without acute diverticulitis. Dictated by: Chin Robert M.D. on 05/08/2018 at 20:44 Approved by: Chin Robert M.D. on 05/08/2018 at 20:48 <Bakari Crawford MD - Last Filed: 05/09/18 02:30> Lab Data Lab Results 05/08/18 05/08/18 05/08/18 Range/Units 18:50 18:50 18:50 WBC 7.1 (4.5-11.0) X10^3/uL RBC 4.90 (4.5-5.9) X10^6/uL Hgb 14.9 (13.5-17.5) g/dL Hct 44.3 (41-53) % MCV 90.4 (80-100) fL MCH 30.4 (26-34) PG MCHC 33.6 (30-36) % RDW 13.2 (11.6-14.8) % Plt Count 254 (150-400) X10^3/uL Neut % (Auto) 57.6 (50-75) % Lymph % (Auto) 33.3 (25-40) % [place] % (Auto) 6.6 (3-14) % Eos % (Auto) 1.7 L (2-4) % Baso % (Auto) 0.8 (0-2) % Neut # (Auto) 4100 (3060-7277) /uL Lymph # (Auto) 2400 (3316-5254) /uL [place] # (Auto) 500 (0-900) /uL Eos # (Auto) 100 (0-450) /uL Baso # (Auto) 100 (0-100) /uL PT 12.3 (10.1-12.7) SECONDS INR 1.1 (0.9-1.3) APTT 32 (26.4-36.2) SECONDS Sodium 139 (137-145) mmol/L Potassium 3.7 (3.4-5.1) mmol/L Chloride 100 (98-107) mmol/L Carbon Dioxide 29 (22-32) mmol/L BUN 14 (9-20) mg/dL Creatinine 0.90 (0.66-1.25) mg/dL Estimated GFR > 60.0 (>60) mL/min BUN/Creatinine Ratio 15.6 (6-22) Glucose 93 (70-100) mg/dL Calcium 9.5 (8.4-10.2) mg/dL Total Bilirubin 1.0 (0.2-1.3) mg/dL AST 31 (17-59) IU/L ALT 43 (21-72) IU/L Alkaline Phosphatase 53 (38-126) U/L Total Protein 7.6 (6.3-8.2) g/dL Albumin 4.7 (3.5-5.0) g/dL Globulin 2.9 (1.7-4.1) g/dL Albumin/Globulin Ratio 1.6 (1.0-2.8) Lipase 34 (23-300) U/L Urine RBC (0-5/HPF) Urine WBC (0-5/HPF) Ur Squamous Epith Cells Urine Bacteria (None) Urine Mucus (Negative) Ur Culture Indicated? 05/08/18 Range/Units 18:50 WBC (4.5-11.0) X10^3/uL RBC (4.5-5.9) X10^6/uL Hgb (13.5-17.5) g/dL Hct (41-53) % MCV (80-100) fL MCH (26-34) PG MCHC (30-36) % RDW (11.6-14.8) % Plt Count (150-400) X10^3/uL Neut % (Auto) (50-75) % Lymph % (Auto) (25-40) % [place] % (Auto) (3-14) % Eos % (Auto) (2-4) % Baso % (Auto) (0-2) % Neut # (Auto) (6766-9735) /uL Lymph # (Auto) (2269-8413) /uL [place] # (Auto) (0-900) /uL Eos # (Auto) (0-450) /uL Baso # (Auto) (0-100) /uL PT (10.1-12.7) SECONDS INR (0.9-1.3) APTT (26.4-36.2) SECONDS Sodium (137-145) mmol/L Potassium (3.4-5.1) mmol/L Chloride (98-107) mmol/L Carbon Dioxide (22-32) mmol/L BUN (9-20) mg/dL Creatinine (0.66-1.25) mg/dL Estimated GFR (>60) mL/min BUN/Creatinine Ratio (6-22) Glucose (70-100) mg/dL Calcium (8.4-10.2) mg/dL Total Bilirubin (0.2-1.3) mg/dL AST (17-59) IU/L ALT (21-72) IU/L Alkaline Phosphatase (38-126) U/L Total Protein (6.3-8.2) g/dL Albumin (3.5-5.0) g/dL Globulin (1.7-4.1) g/dL Albumin/Globulin Ratio (1.0-2.8) Lipase (23-300) U/L Urine RBC 30-100/hpf H (0-5/HPF) Urine WBC 0-1/hpf (0-5/HPF) Ur Squamous Epith Cells 0-1 /hpf Urine Bacteria None seen (None) Urine Mucus 3+ H (Negative) Ur Culture Indicated? Cult not indicated Point of care testing: Urine Dip Bedside Urine Glucose Negative Bedside Urine Bilirubin - Negative Bedside Urine Ketone +++ 80 Urine Specific [place] 1.030 Bedside Urine Occult Blood +++ Bedside Urine pH 6.0 Bedside Urine Protein + 30 Bedside Urine Urobilinogen - Negative Bedside Urine Nitrite - Negative Bedside Urine Leukocytes - Negative Esterase Discharge Plan Departure Patient Disposition: Home Clinical Impression: Calculus of kidney Discharge Date/Time: 05/08/18 21:55 Interventions: ED Discharge Assessment Last Done: 05/08/18 21:53 Instructions: DI for Kidney Stones Activity Restrictions/Additional Instructions: Return as we talked about if you have any acutely worsening symptoms over the weekend. Since you have Odansetron already at home, please use this as needed for nausea. Drink plenty of clear fluids. Take the tamsulosin each evening (we have given you a dose tonight so fill the prescription at the pharmacy tomorrow.). Take ibuprofen, 800 mg every 8 hr, and then you can and the hydrocodone/acetaminophen in addition to this as needed (do not drive with that as it may make you sleepy). Please call your insurance tomorrow and let them know that you need to see a local urologist for follow-up early next week. They may be able to arrange an appointment for you. We would recommend [facility]. Dr. Diop also sees patients in [facility] at [facility]. Please call [facility] medical records first thing on Friday and as them to fax your notes from here to whichever provider you will be seeing. Take the disc copy of your CT that we gave you to the appointment. You can ask your [facility] rep whether [facility] in [facility] will take your insurance for primary care as I know for sure that they are able to see new patients quickly. Prescriptions: New hydrocodone-acetaminophen [[place]] 5-325 mg tablet 1 tab PO Q4-6H PRN (Reason: kidney stone pain) Qty: 10 RF: 0 tamsulosin 0.4 mg capsule 0.4 mg PO DAILY Qty: 7 RF: 0 No Action bacitracin zinc 28.35 GM ointment 500 unit Topical BID 7 Days Qty: 0 RF: 0 tramadol 50 MG tablet PO Q6HP PRNQty: 8 RF: 0 hydrocodone-acetaminophen 5-325 mg tablet 1 tab PO Q4-6H PRN (Reason: pain) Qty: 10 RF: 0 ketorolac 10 mg tablet 10 mg PO Q6H PRN (Reason: pain) Qty: 14 RF: 0 tamsulosin [Flomax] 0.4 mg capsule 0.4 mg PO DAILY Qty: 10 RF: 0 ondansetron 4 mg tablet,disintegrating 4 mg PO TID-QID PRN (Reason: nausea and vomiting) Qty: 10 RF: 0 <Bakari Crawford MD - Last Filed: 05/09/18 02:30> Cosign ED Attending Coskelvinature Attestation: I was in the ER at the time this patient's care. I was available for consultation or to see the patient directly if needed. I agree with the assessment and treatment plan.
[2018-05-08 19:20] LABS: INR 1.1 (0.9-1.3); Prothrombin Time 12.3 SECONDS (10.1-12.7)
[2018-05-08 19:22] LABS: PTT Partial Thromboplastin Tim 32 SECONDS (26.4-36.2)
--- NOTE | 2018-05-08 19:30 | DI.CT.S_ITS ---
PROCEDURE: CT ABDOMEN PELVIS W CON INDICATIONS: left upper and lower quadrant pain, rebound TECHNIQUE: After the administration of intravenous contrast, 5 mm thick sections acquired from the diaphragm to the symphysis. 5 mm coronal and sagittal reformats were acquired. For radiation dose reduction, the following was used: automated exposure control, adjustment of mA and/or kV according to patient size. COMPARISON: None. FINDINGS: Image quality: Excellent. ABDOMEN: Lung bases: There is mild dependent atelectasis. Heart size is normal. Solid organs: There is mild focal fatty infiltration in the anterior left hepatic lobe. Gallbladder appears within normal limits without calcified gallstones. Biliary system is non dilated. Pancreas enhances normally. Spleen is normal in size and enhancement. No adrenal nodules. There is an obstructive stone or cluster of small stones in the proximal left ureter at the ureteropelvic junction. This measures up to approximately 7 mm in aggregate dimension. There is mild left hydronephrosis with mild urothelial thickening. There is mild perinephric and perirenal stranding. The right kidney demonstrates no hydronephrosis. There are a few, at least 3 on the right and at least 2 on the left, nonobstructing renal stones bilaterally. These measure up to approximately 3 mm in each kidney. The right ureter is normal in caliber. No perinephric fluid collections. Peritoneum and bowel: Bowel loops demonstrate normal wall thickness and caliber. The appendix is normal in appearance. There is colonic diverticulosis without acute diverticulitis. No free fluid or air. Nodes and vessels: No retroperitoneal or mesenteric adenopathy by size criteria. Aorta and inferior vena cava are normal in size. Miscellaneous: No ventral hernias. PELVIS: Genitourinary: Bladder wall thickness is normal. Miscellaneous: No inguinal hernias or adenopathy. Bones: No suspicious bony lesions. No vertebral body compression fractures. IMPRESSION: 1. Obstructing proximal left urinary stone or cluster of stones measuring up to 7 mm with associated mild left hydronephrosis. 2. Associated perinephric and periureteral fat stranding with mild urothelial thickening likely related to obstruction but correlation is recommended with urinalysis for possible urinary tract infection. 3. Colonic diverticulosis without acute diverticulitis. Dictated by: Chin Robert M.D. on 05/08/2018 at 20:44 Approved by: Chin Robert M.D. on 05/08/2018 at 20:48
[2018-05-08] MEDS: SODIUM CHLORIDE 0.9% 1,000 ML 1000 ML IV (19:51)
[2018-05-08] MEDS: KETOROLAC 60 MG/2 ML VIAL 30 MG IV (19:52)
[2018-05-08] MEDS: ONDANSETRON 4 MG/2 ML INJ IV (19:52)
--- NOTE | 2018-05-08 21:27 | PC.NURSE ---
I agree with all assessments and treatments completed by the student nurse. I was available as needed.
[2018-05-08 21:34] VITALS: BP 117/63; PULSE 63; RESP 16; O2SAT 98
[2018-05-08] MEDS: TAMSULOSIN 0.4 MG CAPSULE PO (21:39)
[2018-05-08] MEDS: HYDROCODONE/ACET 5/325 PREPACK 1 BOTTLE MISC (21:39)
[2018-05-08 21:53] VITALS: BP 117/63; PULSE 63; RESP 14; O2SAT 98
== END 2018-05-08 21:55 | disposition home or self-care (01) ==
PROVIDERS: Emergency Medicine; Emergency Provider Internal Medicine
DX: N20.0 Calculus of kidney (principal)
CPT/HCPCS: 36591; 74177; 80053; 81003; 81015; 83690; 85025; 85610; 85730; 96361; 96374; 96375; 99283; 99285; J1885; J2405; Q9967

== ENCOUNTER 2019-12-20 13:37 | Observation (INO) | payer OTHER, MEDICAID, SELFPAY ==
[2019-12-20] VITALS (19 sets, daily range): BP systolic 102–143; BP diastolic 55–83; PULSE 59–99; RESP 16–18; TEMP 36.4–36.8; O2SAT 94–100; BMI 31.5
[2019-12-20 13:58] LABS: Add Manual Diff / Slide Review NO; Basophils Absolute Auto 100 /uL (0-100); Basophils Percent Auto 0.6 % (0-2); Eosinophils Absolute Auto 100 /uL (0-450); Eosinophils Percent Auto 0.8 % (2-4); Hematocrit 47.3 % (41-53); Hemoglobin 16.1 g/dL (13.5-17.5); Lymphocytes Absolute Auto 2200 /uL (1100-4500); Lymphocytes Percent Auto 22.4 % (25-40); Mean Corpuscular HGB Conc 34.1 % (30-36); Mean Corpuscular Hemoglobin 30.3 PG (26-34); Mean Corpuscular Volume 89.1 fL (80-100); Monocytes Absolute Auto 500 /uL (0-900); Monocytes Percent Auto 5.3 % (3-14); Neutrophils Absolute Auto 7000 /uL (1500-7000); Neutrophils Percent Auto 70.9 % (50-75); Platelet Count 231 X10^3/uL (150-400); Red Blood Cell Count 5.31 X10^6/uL (4.5-5.9); Red Cell Distribution Width 13.2 % (11.6-14.8); White Blood Cell Count 9.9 X10^3/uL (4.5-11.0)
[2019-12-20] MEDS: SODIUM CHLORIDE 0.9% 1,000 ML 1000 ML IV (14:02)
[2019-12-20] MEDS: PANTOPRAZOLE 40 MG VIAL 80 MG IV (14:02)
[2019-12-20] MEDS: ONDANSETRON 4 MG/2 ML INJ IV (14:02)
[2019-12-20 14:10] LABS: Lactate (Lactic Acid) 1.5 mmol/L (0.7-2.1)
[2019-12-20 14:11] LABS: Alanine Aminotransferase 42 IU/L (<50); Albumin 4.9 g/dL (3.5-5.0); Albumin Globulin Ratio 1.6 (1.0-2.8); Alkaline Phosphatase 75 U/L (38-126); Aspartate Aminotransferase 33 IU/L (17-59); Bilirubin Total 0.6 mg/dL (0.2-1.3); Blood Urea Nitrogen 16 mg/dL (9-20); Calcium 9.4 mg/dL (8.4-10.2); Carbon Dioxide 26 mmol/L (22-32); Chloride 104 mmol/L (98-107); Estimated Glomerular Filt Rate > 60.0 mL/min (>60); Globulin 3.1 g/dL (1.7-4.1); Glucose 83 mg/dL (70-100); HEMOLYSIS < 15 (0-50); Lipase 50 U/L (23-300); Potassium 3.7 mmol/L (3.4-5.1); Sodium 141 mmol/L (137-145)
[2019-12-20 14:42] LABS: Prothrombin Time 11.2 SECONDS (10.1-12.7)
[2019-12-20 14:44] LABS: PTT Partial Thromboplastin Tim 29 SECONDS (26.4-36.2)
[2019-12-20 15:06] LABS: Bacteria Urine None Seen; WBC Urine None Seen (0-5/HPF)
[2019-12-20 15:12] LABS: Culture Indicated Urine Cult Not Indicated; RBC Urine 1-5/HPF (0-5/HPF)
[2019-12-20 15:13] LABS: Mucus Urine 1+ (Negative)
--- NOTE | 2019-12-20 15:19 | ED_ITS ---
HPI - GI Bleed <KRISTIN Rey - Last Filed: 12/21/19 00:07> General Chief complaint: GI Bleed Stated complaint: throwing up blood Time Seen by Provider: 12/20/19 13:43 Source: patient Mode of arrival: Ambulatory Limitations: no limitations History of Present Illness HPI Narrative: This is a 29-year-old male, smoker, who has history of multiple kidney stones and a cannabis use presents to ED with chief complain of bright red hematemesis this morning. Patient reports had about a cup or more of blood in his vomit which started at 10:00 a.m. this morning. Patient reports left-si ded upper quadrant pain, dyspnea, chest discomfort, and lightheadedness and felt like passing out. Fiance at bedside reports patient's abdomen appears to be distended. Denies fever but had cold sweats during emesis. Patient reports had similar symptoms about 6 months ago which had not followed up. Patient denies history of liver disease, pancreatitis, or varices. Patient reports had heavy a lcohol intake last night with approximately 1/2 gal of hard liquor. He denies heavy alcohol consumption daily and usually drinks about 2 beers a day. Patient denies feeling as he is having another kidney stone pain. Related Data Previous Rx's Medication Instructions Recorded pantoprazole [Protonix] 40 mg PO DAILY #30 tab 12/21/19 Allergies Allergy/AdvReac Type Severity Reaction Status Date / Time No Known Drug Allergies Allergy Verified 12/20/19 13:53 Review of Systems <KRISTIN Rey - Last Filed: 12/21/19 00:07> Review of Systems Narrative: General: Denies fever, chills, fatigue, malaise, sweats. HEENT: Denies sinus pain, ear pain, sore throat, difficulty swallowing, dizziness. Respiratory: Denies dyspnea, cough, wheezing, hemoptysis, sputum. Cardiovascular: Denies chest pain, palpitations, orthopnea, edema. Gastrointestinal: Denies nausea, vomiting, abdominal pain, diarrhea, constipation, melena. : Denies dysuria, frequency, incontinence, hematuria, urinary retention. Musculoskeletal: Denies weakness, joint pain or bony pain. Skin: Denies rash, skin lesions, or other. Neurologic: Denies weakness, headache, numbness, change in speech, confusion, seizures, incoordination. Psychiatric: No concerning psychosocial issues. 12-point review of systems is negative except for those stated above. Patient History <KRISTIN Rey - Last Filed: 12/21/19 00:07> Medical History Alcohol abuse (Acute) Current smoker (Acute) Nephrolithiasis (Acute) Surgical History No pertinent past surgical history (Chronic) Family History Father Kidney stones Diverticulitis Alcohol abuse Mother No significant medical problems Social History household members: significant other Smoking Status: Current every day smoker Smoking Status: Current every day smoker alcohol intake frequency: 3 or more drinks per day Substance Use Type: marijuana Exam <KRISTIN Rey - Last Filed: 12/21/19 00:07> Narrative Exam Narrative: GEN: Alert, oriented x 3, well nourished, and in no acute distress, has a strong smell of cannabis in patient's room. Head: Normal cephalic, atraumatic. No scalp or temporal tenderness, palpable ma ss or rash. EYES: Pupils are equal, round, and reactive to light and accommodation. Extraocular muscles are intact bilaterally. There is no subconjunctival hemorrhage, exudate and sclera non-icteric. ENT: Hearing grossly intact. Nose without bleeding, purulent discharge or deviation. Mucous membrane moist, no mucosal lesion. Throat without erythema, tonsillar hypertrophy or exudate. Uvula in midline, airway patent. Neck: Trachea in midline. No JVD, non-tender without lymphadenopathy. No masses or thyroid megaly. Supple, non-tender and no meningeal signs. CARDIAC: Normal regular rate and rhythm without murmurs, gallops, or rubs. No chest wall tenderness. No peripheral edema, cyanosis or pallor. Capillary refill is less than 2 seconds. RESPIRATORY: Lungs are clear to auscultate bilaterally. No cough, wheezes, rales, or rhonchi. No stridor, respiratory distress, increase work of breathing, or accessary muscle used. ABD: Abdomen soft, slightly distended, tender to palpate in upper abdomen worse in left-sided. No guarding or rebound tenderness to palpate. Bowel sounds are normal in all 4 quadrants. There is no palpable masses or organomegaly. EXT: Full painless ROM of all extremities with no loss of sensation, strength, effusion or edema. SKIN: Warm, dry, normal color for patient. No erythema, lesions or rash over visible areas. BACK: Nontender without deformity or crepitance. No flank tenderness. NEUROLOGICAL: Alert and oriented to place, time and person. Sensation and motor function intact bilaterally. No facial droops, dysphasia. PSYCHIATRIC: Good judgement and reason, without hallucinations, abnormal affect or abnormal behaviors during the examination. Patient is not suicidal. Initial Vital Signs Initial Vital Signs: Vital Signs Temperature 98.3 F 12/20/19 13:40 Pulse Rate 86 12/20/19 13:40 Respiratory Rate 18 12/20/19 13:40 Blood Pressure 143/83 H 12/20/19 13:40 Pulse Oximetry 100 12/20/19 13:40 <Gretel Manzo DO - Last Filed: 12/25/19 07:33> Initial Vital Signs Initial Vital Signs: Vital Signs Temperature 98.3 F 12/20/19 13:40 Pulse Rate 86 12/20/19 13:40 Respiratory Rate 18 12/20/19 13:40 Blood Pressure 143/83 H 12/20/19 13:40 Pulse Oximetry 100 12/20/19 13:40 Scores <KRISTIN Rey - Last Filed: 12/21/19 00:07> GCS [place] coma scale eye opening: Spontaneous [place] coma scale verbal response: Orientated [place] coma scale motor response: Obey commands [place] coma scale total score: 15 Course <KRISTIN Rey - Last Filed: 12/21/19 00:07> Course Course Narrative: Consulted Dr. Manzo with lab, physical and HPI findings and was recommended for transfer for varices work up where GI specialist is available. Waiting for [facility] call back Decision to Admit Date: 12/20/19 Decision to Admit time: 15:30 Additional Information: Transfer to acute facility with GI specialist Orders Ordered: Discontinued Medications Diphenhydramine HCl (Benadryl) 25 mg IV NOW ONE Stop: 12/20/19 15:22 Last Admin: 12/20/19 15:27 Dose: 25 mg Documented by: JESS Folic Acid (Folic Acid) 1 mg PO DAILY ANA Folic Acid (Folic Acid) 1 mg PO DAILY ANA Last Admin: 12/21/19 09:22 Dose: Not Given Documented by: INGRIS Haloperidol (Haldol) 2 mg IV Q1H PRN PRN Reason: Agitation Last Admin: 12/20/19 15:29 Dose: 2 mg Documented by: JESS Sodium Chloride (Normal Saline 0.9%) 1,000 mls @ 1,000 mls/hr IV BOLUS ONE Stop: 12/20/19 14:52 Last Infusion: 12/20/19 17:38 Dose: 0 mls/hr Documented by: Admin: 12/20/19 14:02 Dose: 1,000 mls/hr Documented by: JESS Pantoprazole Sodium 80 mg/ (Sodium Chloride) 100 mls @ 10 mls/hr IV CONT ANA Last Infusion: 12/20/19 18:46 Dose: 0 mg/hr, 0 mls/hr Documented by: Admin: 12/20/19 15:58 Dose: 8 mg/hr, 10 mls/hr Documented by: JESS Octreotide Acetate 500 mcg/ (Sodium Chloride) 101 mls @ 10.1 mls/hr IV CONT ANA; Protocol Last Infusion: 12/21/19 03:00 Dose: 0 mcg/hr, 0 mls/hr Documented by: Infusion: 12/20/19 23:00 Dose: 50 mcg/hr, 10.1 mls/hr Documented by: Infusion: 12/20/19 18:46 Dose: 0 mcg/hr, 0 mls/hr Documented by: Admin: 12/20/19 15:58 Dose: 50 mcg/hr, 10.1 mls/hr Documented by: JESS Sodium Chloride (Normal Saline 0.9%) 1,000 mls @ 125 mls/hr IV CONT ANA Last Admin: 12/20/19 21:18 Dose: Not Given Documented by: SABA Magnesium Sulfate 2 gm/ Folic Acid 1 mg/ Thiamine HCl 100 mg / Multivitamins 10 ml/ Sodium Chloride 1,015.2 mls @ 125 mls/hr IV NOW ONE Stop: 12/21/19 03:55 Last Infusion: 12/21/19 07:59 Dose: 0 mls/hr Documented by: Admin: 12/20/19 21:05 Dose: 125 mls/hr Documented by: MIC Sodium Chloride (Normal Saline 0.9%) 1,000 mls @ 75 mls/hr IV CONT [facility] Last Infusion: 12/21/19 13:30 Dose: 0 mls/hr Documented by: Infusion: 12/21/19 09:50 Dose: 75 mls/hr Documented by: Admin: 12/21/19 04:21 Dose: 125 mls/hr Documented by: CARMELA Lactated Ringer's (Lactated Ringers) 1,000 mls @ 42 mls/hr IV CONT [facility] Last Infusion: 12/21/19 14:38 Dose: 0 mls/hr Documented by: Admin: 12/21/19 14:00 Dose: 42 mls/hr Documented by: CHERYL Lorazepam (Ativan) 0 mg IV CIWAPRN PRN; Protocol PRN Reason: Alcohol Withdrawal Lorazepam (Ativan) 0 mg PO CIWAPRN PRN; Protocol PRN Reason: Alcohol Withdrawal Melatonin (Melatonin) 6 mg PO BEDTIME [facility] Last Admin: 12/20/19 22:52 Dose: Not Given Documented by: MIC Morphine Sulfate (Morphine) 2 mg IV Q4HR PRN PRN Reason: Pain, Moderate (4-6) Multivitamins (Tab-A-Jose De Jesus) 1 tab PO DAILY [facility] Last Admin: 12/21/19 09:22 Dose: Not Given Documented by: INGRIS Naloxone HCl (Narcan) 0.2 mg IV Q2MIN PRN PRN Reason: Opiate Reversal Octreotide Acetate (Sandostatin) 50 mcg IV NOW ONE Stop: 12/20/19 15:31 Last Admin: 12/20/19 15:48 Dose: 50 mcg Documented by: JESS Ondansetron HCl (Zofran) 4 mg IV NOW ONE Stop: 12/20/19 13:43 Last Admin: 12/20/19 14:02 Dose: 4 mg Documented by: JESS Ondansetron HCl (Zofran) 4 mg IV Q8HR PRN PRN Reason: Nausea And Vomiting Ondansetron HCl (Zofran) 4 mg IV NOW PRN PRN Reason: Nausea And Vomiting Pantoprazole Sodium (Protonix) 80 mg IV NOW ONE Stop: 12/20/19 13:43 Last Admin: 12/20/19 14:02 Dose: 80 mg Documented by: JESS Pantoprazole Sodium (Protonix) 40 mg IV BID ANA Pantoprazole Sodium (Protonix) 40 mg IV BID [facility] Thiamine HCl (Vitamin B-1) 100 mg PO DAILY [facility] Stop: 12/24/19 09:01 Last Admin: 12/21/19 09:22 Dose: Not Given Documented by: INGRIS Reevaluation(s) Reevaluation #1: Patient reports still has nausea after the receiving initial Zofran. Time: 15:10 Reevaluation #2: Patient reports nausea has improved at this time. Waiting seen [facility] to call back and currently likely accepted for transfer. Patient is receiving pantoprazole and Octretide drips. Time: 16:30 Reevaluation #3: [facility] called back and informed [facility] No bed available at [facility] and continue to look for available bed in [facility]. Time: 16:50 Additional Reevaluation(s): Informed patient and significant other on hospitalization at [facility] and pending endoscopy to find the source bleeding. Patient reports feeling improvement on dizziness and nausea and vomiting. Consultations Consultation #1: No bed available at [facility], will contact [facility] Time: 15:55 Consultation #2: Dr. Calero (GI specialist) at returned call and recommended non urgent endoscopy and medicate patient on PPI and likely upper GI bleeding from Alcohol gastritis. Time: 17:41 Consultation #3: Dr. Martinez consulted and appreciate his consultation and time. He recommended hospitalist to manage inpatient care and will plan to scope him tomorrow. Time: 17:55 Additional Consultation(s): Dr. Lincoln kindly accepted the patient's care under medical service for upper GI bleed and management. Vital Signs Vital signs: Vital Signs - 8 hr 12/20/19 16:00 12/20/19 16:21 12/20/19 16:30 Temperature Pulse Rate 77 71 76 Respiratory Rate Blood Pressure 125/77 123/75 Pulse Oximetry 97 94 96 12/20/19 16:45 12/20/19 17:00 12/20/19 17:15 Temperature Pulse Rate 79 76 74 Respiratory Rate Blood Pressure 117/70 126/74 102/59 L Pulse Oximetry 95 96 96 12/20/19 17:30 12/20/19 17:45 12/20/19 18:00 Temperature Pulse Rate 75 78 71 Respiratory Rate Blood Pressure 109/55 L 116/63 115/65 Pulse Oximetry 97 98 96 12/20/19 18:34 Temperature 98.1 F Pulse Rate 69 Respiratory Rate 17 Blood Pressure 122/71 Pulse Oximetry 98 <Gretel Manzo DO - Last Filed: 12/25/19 07:33> Orders Ordered: Discontinued Medications Diphenhydramine HCl (Benadryl) 25 mg IV NOW ONE Stop: 12/20/19 15:22 Last Admin: 12/20/19 15:27 Dose: 25 mg Documented by: JESS Folic Acid (Folic Acid) 1 mg PO DAILY ANA Folic Acid (Folic Acid) 1 mg PO DAILY ANA Last Admin: 12/21/19 09:22 Dose: Not Given Documented by: INGRIS Haloperidol (Haldol) 2 mg IV Q1H PRN PRN Reason: Agitation Last Admin: 12/20/19 15:29 Dose: 2 mg Documented by: JESS Sodium Chloride (Normal Saline 0.9%) 1,000 mls @ 1,000 mls/hr IV BOLUS ONE Stop: 12/20/19 14:52 Last Infusion: 12/20/19 17:38 Dose: 0 mls/hr Documented by: Admin: 12/20/19 14:02 Dose: 1,000 mls/hr Documented by: JESS Pantoprazole Sodium 80 mg/ (Sodium Chloride) 100 mls @ 10 mls/hr IV CONT ANA Last Infusion: 12/20/19 18:46 Dose: 0 mg/hr, 0 mls/hr Documented by: Admin: 12/20/19 15:58 Dose: 8 mg/hr, 10 mls/hr Documented by: JESS Octreotide Acetate 500 mcg/ (Sodium Chloride) 101 mls @ 10.1 mls/hr IV CONT ANA; Protocol Last Infusion: 12/21/19 03:00 Dose: 0 mcg/hr, 0 mls/hr Documented by: Infusion: 12/20/19 23:00 Dose: 50 mcg/hr, 10.1 mls/hr Documented by: Infusion: 12/20/19 18:46 Dose: 0 mcg/hr, 0 mls/hr Documented by: Admin: 12/20/19 15:58 Dose: 50 mcg/hr, 10.1 mls/hr Documented by: JESS Sodium Chloride (Normal Saline 0.9%) 1,000 mls @ 125 mls/hr IV CONT ANA Last Admin: 12/20/19 21:18 Dose: Not Given Documented by: SABA Magnesium Sulfate 2 gm/ Folic Acid 1 mg/ Thiamine HCl 100 mg / Multivitamins 10 ml/ Sodium Chloride 1,015.2 mls @ 125 mls/hr IV NOW ONE Stop: 12/21/19 03:55 Last Infusion: 12/21/19 07:59 Dose: 0 mls/hr Documented by: Admin: 12/20/19 21:05 Dose: 125 mls/hr Documented by: MIC Sodium Chloride (Normal Saline 0.9%) 1,000 mls @ 75 mls/hr IV CONT ANA Last Infusion: 12/21/19 13:30 Dose: 0 mls/hr Documented by: Infusion: 12/21/19 09:50 Dose: 75 mls/hr Documented by: Admin: 12/21/19 04:21 Dose: 125 mls/hr Documented by: CARMELA Lactated Ringer's (Lactated Ringers) 1,000 mls @ 42 mls/hr IV CONT ANA Last Infusion: 12/21/19 14:38 Dose: 0 mls/hr Documented by: Admin: 12/21/19 14:00 Dose: 42 mls/hr Documented by: CHERYL Lorazepam (Ativan) 0 mg IV CIWAPRN PRN; Protocol PRN Reason: Alcohol Withdrawal Lorazepam (Ativan) 0 mg PO CIWAPRN PRN; Protocol PRN Reason: Alcohol Withdrawal Melatonin (Melatonin) 6 mg PO BEDTIME ANA Last Admin: 12/20/19 22:52 Dose: Not Given Documented by: GAILHITE Morphine Sulfate (Morphine) 2 mg IV Q4HR PRN PRN Reason: Pain, Moderate (4-6) Multivitamins (Tab-A-Jose De Jesus) 1 tab PO DAILY [facility] Last Admin: 12/21/19 09:22 Dose: Not Given Documented by: INGRIS Naloxone HCl (Narcan) 0.2 mg IV Q2MIN PRN PRN Reason: Opiate Reversal Octreotide Acetate (Sandostatin) 50 mcg IV NOW ONE Stop: 12/20/19 15:31 Last Admin: 12/20/19 15:48 Dose: 50 mcg Documented by: JESS Ondansetron HCl (Zofran) 4 mg IV NOW ONE Stop: 12/20/19 13:43 Last Admin: 12/20/19 14:02 Dose: 4 mg Documented by: JESS Ondansetron HCl (Zofran) 4 mg IV Q8HR PRN PRN Reason: Nausea And Vomiting Ondansetron HCl (Zofran) 4 mg IV NOW PRN PRN Reason: Nausea And Vomiting Pantoprazole Sodium (Protonix) 80 mg IV NOW ONE Stop: 12/20/19 13:43 Last Admin: 12/20/19 14:02 Dose: 80 mg Documented by: JESS Pantoprazole Sodium (Protonix) 40 mg IV BID [facility] Pantoprazole Sodium (Protonix) 40 mg IV BID [facility] Thiamine HCl (Vitamin B-1) 100 mg PO DAILY [facility] Stop: 12/24/19 09:01 Last Admin: 12/21/19 09:22 Dose: Not Given Documented by: INGRIS Vital Signs Vital signs: Vital Signs - 8 hr 12/20/19 16:00 12/20/19 16:21 12/20/19 16:30 Temperature Pulse Rate 77 71 76 Respiratory Rate Blood Pressure 125/77 123/75 Pulse Oximetry 97 94 96 12/20/19 16:45 12/20/19 17:00 12/20/19 17:15 Temperature Pulse Rate 79 76 74 Respiratory Rate Blood Pressure 117/70 126/74 102/59 L Pulse Oximetry 95 96 96 12/20/19 17:30 12/20/19 17:45 12/20/19 18:00 Temperature Pulse Rate 75 78 71 Respiratory Rate Blood Pressure 109/55 L 116/63 115/65 Pulse Oximetry 97 98 96 12/20/19 18:34 Temperature 98.1 F Pulse Rate 69 Respiratory Rate 17 Blood Pressure 122/71 Pulse Oximetry 98 MDM - GI Bleed <Jesse Gonzalez-Oras, SALES COORDINATOR - Last Filed: 12/21/19 00:07> Differential Diagnosis Differential diagnosis: Likely esophageal varices, gastritis, Janny-Aragon syndrome and Upper gastrointestinal hemorrhage Medical Records Attestation: I reviewed the patient's medical records. Lab Data Attestation: I reviewed the patient's lab results. Result diagrams: 12/21/19 06:56 12/21/19 06:56 Labs: Lab Results 12/20/19 12/20/19 12/20/19 Range/Units 13:50 13:50 13:50 WBC 9.9 (4.5-11.0) X10^3/uL RBC 5.31 (4.5-5.9) X10^6/uL Hgb 16.1 (13.5-17.5) g/dL Hct 47.3 (41-53) % MCV 89.1 (80-100) fL MCH 30.3 (26-34) PG MCHC 34.1 (30-36) % RDW 13.2 (11.6-14.8) % Plt Count 231 (150-400) X10^3/uL Neut % (Auto) 70.9 (50-75) % Lymph % (Auto) 22.4 L (25-40) % [facility] % (Auto) 5.3 (3-14) % Eos % (Auto) 0.8 L (2-4) % Baso % (Auto) 0.6 (0-2) % Neut # (Auto) 7000 (0533-6368) /uL Lymph # (Auto) 2200 (3826-8114) /uL [facility] # (Auto) 500 (0-900) /uL Eos # (Auto) 100 (0-450) /uL Baso # (Auto) 100 (0-100) /uL PT 11.2 (10.1-12.7) SECONDS INR 1.0 (0.9-1.3) APTT 29 D (26.4-36.2) SECONDS Sodium 141 (137-145) mmol/L Potassium 3.7 (3.4-5.1) mmol/L Chloride 104 (98-107) mmol/L Carbon Dioxide 26 (22-32) mmol/L BUN 16 (9-20) mg/dL Creatinine 0.94 (0.66-1.25) mg/dL Estimated GFR > 60.0 (>60) mL/min BUN/Creatinine Ratio 17.0 (6-22) Glucose 83 (70-100) mg/dL Lactate (0.7-2.1) mmol/L Calcium 9.4 (8.4-10.2) mg/dL Magnesium (1.6-2.3) mg/dL Total Bilirubin 0.6 (0.2-1.3) mg/dL AST 33 (17-59) IU/L ALT 42 (<50) IU/L Alkaline Phosphatase 75 (38-126) U/L Total Protein 8.0 (6.3-8.2) g/dL Albumin 4.9 (3.5-5.0) g/dL Globulin 3.1 (1.7-4.1) g/dL Albumin/Globulin Ratio 1.6 (1.0-2.8) Lipase 50 (23-300) U/L Urine RBC (0-5/HPF) Urine WBC (0-5/HPF) Urine Bacteria (None) Urine Mucus (Negative) Ur Culture Indicated? COVID-19 PCR (Negative) Blood Type Antibody Screen 12/20/19 12/20/19 12/20/19 Range/Units 13:50 13:50 13:50 WBC (4.5-11.0) X10^3/uL RBC (4.5-5.9) X10^6/uL Hgb (13.5-17.5) g/dL Hct (41-53) % MCV (80-100) fL MCH (26-34) PG MCHC (30-36) % RDW (11.6-14.8) % Plt Count (150-400) X10^3/uL Neut % (Auto) (50-75) % Lymph % (Auto) (25-40) % [facility] % (Auto) (3-14) % Eos % (Auto) (2-4) % Baso % (Auto) (0-2) % Neut # (Auto) (7885-9293) /uL Lymph # (Auto) (5327-1339) /uL [facility] # (Auto) (0-900) /uL Eos # (Auto) (0-450) /uL Baso # (Auto) (0-100) /uL PT (10.1-12.7) SECONDS INR (0.9-1.3) APTT (26.4-36.2) SECONDS Sodium (137-145) mmol/L Potassium (3.4-5.1) mmol/L Chloride (98-107) mmol/L Carbon Dioxide (22-32) mmol/L BUN (9-20) mg/dL Creatinine (0.66-1.25) mg/dL Estimated GFR (>60) mL/min BUN/Creatinine Ratio (6-22) Glucose (70-100) mg/dL Lactate 1.5 (0.7-2.1) mmol/L Calcium (8.4-10.2) mg/dL Magnesium 2.0 (1.6-2.3) mg/dL Total Bilirubin (0.2-1.3) mg/dL AST (17-59) IU/L ALT (<50) IU/L Alkaline Phosphatase (38-126) U/L Total Protein (6.3-8.2) g/dL Albumin (3.5-5.0) g/dL Globulin (1.7-4.1) g/dL Albumin/Globulin Ratio (1.0-2.8) Lipase (23-300) U/L Urine RBC (0-5/HPF) Urine WBC (0-5/HPF) Urine Bacteria (None) Urine Mucus (Negative) Ur Culture Indicated? COVID-19 PCR (Negative) Blood Type O Positive Antibody Screen Negative 12/20/19 12/20/19 Range/Units 14:40 16:25 WBC (4.5-11.0) X10^3/uL RBC (4.5-5.9) X10^6/uL Hgb (13.5-17.5) g/dL Hct (41-53) % MCV (80-100) fL MCH (26-34) PG MCHC (30-36) % RDW (11.6-14.8) % Plt Count (150-400) X10^3/uL Neut % (Auto) (50-75) % Lymph % (Auto) (25-40) % [facility] % (Auto) (3-14) % Eos % (Auto) (2-4) % Baso % (Auto) (0-2) % Neut # (Auto) (2524-9356) /uL Lymph # (Auto) (9556-6530) /uL [facility] # (Auto) (0-900) /uL Eos # (Auto) (0-450) /uL Baso # (Auto) (0-100) /uL PT (10.1-12.7) SECONDS INR (0.9-1.3) APTT (26.4-36.2) SECONDS Sodium (137-145) mmol/L Potassium (3.4-5.1) mmol/L Chloride (98-107) mmol/L Carbon Dioxide (22-32) mmol/L BUN (9-20) mg/dL Creatinine (0.66-1.25) mg/dL Estimated GFR (>60) mL/min BUN/Creatinine Ratio (6-22) Glucose (70-100) mg/dL Lactate (0.7-2.1) mmol/L Calcium (8.4-10.2) mg/dL Magnesium (1.6-2.3) mg/dL Total Bilirubin (0.2-1.3) mg/dL AST (17-59) IU/L ALT (<50) IU/L Alkaline Phosphatase (38-126) U/L Total Protein (6.3-8.2) g/dL Albumin (3.5-5.0) g/dL Globulin (1.7-4.1) g/dL Albumin/Globulin Ratio (1.0-2.8) Lipase (23-300) U/L Urine RBC 1-5/hpf D (0-5/HPF) Urine WBC None seen (0-5/HPF) Urine Bacteria None seen (None) Urine Mucus 1+ H (Negative) Ur Culture Indicated? Cult not indicated COVID-19 PCR Negative (Negative) Blood Type Antibody Screen Point of Care Testing Stool Occult Blood Positive Urine Dip Bedside Urine Glucose Negative Bedside Urine Bilirubin - Negative Bedside Urine Ketone +++ 80 Urine Specific [place] 1.020 Bedside Urine Occult Blood - Negative Bedside Urine pH 6.0 Bedside Urine Protein - Negative Bedside Urine Urobilinogen - Negative Bedside Urine Nitrite - Negative Bedside Urine Leukocytes - Negative Esterase ECG Data Attestation: I personally reviewed and interpreted this ECG as follows: Prior ECG tracings: not available for review Interpretation: Sinus rhythm rate at 78. Normal Lyle. Pr interval 148, QRS duration 90, QT/QTC 394/[address] changes MDM Narrative Medical decision making narrative: This is a 29 year male who presents to ED with upper GI bleed that occurred this morning at 10:00 a.m. when he woke up with several episodes of emesis. Patient is daily alcohol user with 2 drinks but he had 1/2 gallon of hard liquor last night. Patient reports chest pain, dyspnea, and lightheadedness has associated symptoms. Patient is a heavy cannabis user as well but denies history of hyper emesis from using cannabis. Patient had tenderness to palpate in left upper quadrant and significant other states patient's abdomen appears to be distended. Patient is hemodynamically stable with H&H of 16.1/47.3 with normal coag, liver function, and kidney function. AST 33, ALT 42, alk phosphatase 75, lipase 50. Normal total bilirubin and normal platelet counts. Dr. Manzo consulted with HPI, physical findings, and lab tests. She recommended consult GI specialist in acute care facility for upper GI scope to rule out esophageal varices. I have consulted [facility] specialist, Dr. Calero, and he recommended non emergent endoscopy for gastritis likely from alcohol use since did not likely esophageal varices with normal lab tests and from a sporadic heavy alcohol ingestion and to treat patient with PPI. Dr. Lincoln kindly accepted patient's care at [facility] with Dr. Martinez's consultation for endoscopy likely tomorrow. Patient and significant other agrees with the treatment plan. Patient had received 1 L of IV fluid, bolus pantoprazole followed with drips. Patient also received octreotide bolus followed with drips. For nausea patient received IV Zofran 4 mg, Haldol 2 mg with Benadryl 25 mg which was efficacious. Patient was able to tolerate small amount of water without vomiting. <Gretel Manzo, DO - Last Filed: 12/25/19 07:33> Lab Data Labs: Lab Results 12/20/19 12/20/19 12/20/19 Range/Units 13:50 13:50 13:50 WBC 9.9 (4.5-11.0) X10^3/uL RBC 5.31 (4.5-5.9) X10^6/uL Hgb 16.1 (13.5-17.5) g/dL Hct 47.3 (41-53) % MCV 89.1 (80-100) fL MCH 30.3 (26-34) PG MCHC 34.1 (30-36) % RDW 13.2 (11.6-14.8) % Plt Count 231 (150-400) X10^3/uL Neut % (Auto) 70.9 (50-75) % Lymph % (Auto) 22.4 L (25-40) % [facility] % (Auto) 5.3 (3-14) % Eos % (Auto) 0.8 L (2-4) % Baso % (Auto) 0.6 (0-2) % Neut # (Auto) 7000 (5881-1375) /uL Lymph # (Auto) 2200 (3881-7516) /uL [facility] # (Auto) 500 (0-900) /uL Eos # (Auto) 100 (0-450) /uL Baso # (Auto) 100 (0-100) /uL PT 11.2 (10.1-12.7) SECONDS INR 1.0 (0.9-1.3) APTT 29 D (26.4-36.2) SECONDS Sodium 141 (137-145) mmol/L Potassium 3.7 (3.4-5.1) mmol/L Chloride 104 (98-107) mmol/L Carbon Dioxide 26 (22-32) mmol/L BUN 16 (9-20) mg/dL Creatinine 0.94 (0.66-1.25) mg/dL Estimated GFR > 60.0 (>60) mL/min BUN/Creatinine Ratio 17.0 (6-22) Glucose 83 (70-100) mg/dL Lactate (0.7-2.1) mmol/L Calcium 9.4 (8.4-10.2) mg/dL Magnesium (1.6-2.3) mg/dL Total Bilirubin 0.6 (0.2-1.3) mg/dL AST 33 (17-59) IU/L ALT 42 (<50) IU/L Alkaline Phosphatase 75 (38-126) U/L Total Protein 8.0 (6.3-8.2) g/dL Albumin 4.9 (3.5-5.0) g/dL Globulin 3.1 (1.7-4.1) g/dL Albumin/Globulin Ratio 1.6 (1.0-2.8) Lipase 50 (23-300) U/L Urine RBC (0-5/HPF) Urine WBC (0-5/HPF) Urine Bacteria (None) Urine Mucus (Negative) Ur Culture Indicated? COVID-19 PCR (Negative) Blood Type Antibody Screen 12/20/19 12/20/19 12/20/19 Range/Units 13:50 13:50 13:50 WBC (4.5-11.0) X10^3/uL RBC (4.5-5.9) X10^6/uL Hgb (13.5-17.5) g/dL Hct (41-53) % MCV (80-100) fL MCH (26-34) PG MCHC (30-36) % RDW (11.6-14.8) % Plt Count (150-400) X10^3/uL Neut % (Auto) (50-75) % Lymph % (Auto) (25-40) % [place] % (Auto) (3-14) % Eos % (Auto) (2-4) % Baso % (Auto) (0-2) % Neut # (Auto) (7420-3669) /uL Lymph # (Auto) (3500-4189) /uL [place] # (Auto) (0-900) /uL Eos # (Auto) (0-450) /uL Baso # (Auto) (0-100) /uL PT (10.1-12.7) SECONDS INR (0.9-1.3) APTT (26.4-36.2) SECONDS Sodium (137-145) mmol/L Potassium (3.4-5.1) mmol/L Chloride (98-107) mmol/L Carbon Dioxide (22-32) mmol/L BUN (9-20) mg/dL Creatinine (0.66-1.25) mg/dL Estimated GFR (>60) mL/min BUN/Creatinine Ratio (6-22) Glucose (70-100) mg/dL Lactate 1.5 (0.7-2.1) mmol/L Calcium (8.4-10.2) mg/dL Magnesium 2.0 (1.6-2.3) mg/dL Total Bilirubin (0.2-1.3) mg/dL AST (17-59) IU/L ALT (<50) IU/L Alkaline Phosphatase (38-126) U/L Total Protein (6.3-8.2) g/dL Albumin (3.5-5.0) g/dL Globulin (1.7-4.1) g/dL Albumin/Globulin Ratio (1.0-2.8) Lipase (23-300) U/L Urine RBC (0-5/HPF) Urine WBC (0-5/HPF) Urine Bacteria (None) Urine Mucus (Negative) Ur Culture Indicated? COVID-19 PCR (Negative) Blood Type O Positive Antibody Screen Negative 12/20/19 12/20/19 Range/Units 14:40 16:25 WBC (4.5-11.0) X10^3/uL RBC (4.5-5.9) X10^6/uL Hgb (13.5-17.5) g/dL Hct (41-53) % MCV (80-100) fL MCH (26-34) PG MCHC (30-36) % RDW (11.6-14.8) % Plt Count (150-400) X10^3/uL Neut % (Auto) (50-75) % Lymph % (Auto) (25-40) % [place] % (Auto) (3-14) % Eos % (Auto) (2-4) % Baso % (Auto) (0-2) % Neut # (Auto) (9605-0408) /uL Lymph # (Auto) (4436-3588) /uL [place] # (Auto) (0-900) /uL Eos # (Auto) (0-450) /uL Baso # (Auto) (0-100) /uL PT (10.1-12.7) SECONDS INR (0.9-1.3) APTT (26.4-36.2) SECONDS Sodium (137-145) mmol/L Potassium (3.4-5.1) mmol/L Chloride (98-107) mmol/L Carbon Dioxide (22-32) mmol/L BUN (9-20) mg/dL Creatinine (0.66-1.25) mg/dL Estimated GFR (>60) mL/min BUN/Creatinine Ratio (6-22) Glucose (70-100) mg/dL Lactate (0.7-2.1) mmol/L Calcium (8.4-10.2) mg/dL Magnesium (1.6-2.3) mg/dL Total Bilirubin (0.2-1.3) mg/dL AST (17-59) IU/L ALT (<50) IU/L Alkaline Phosphatase (38-126) U/L Total Protein (6.3-8.2) g/dL Albumin (3.5-5.0) g/dL Globulin (1.7-4.1) g/dL Albumin/Globulin Ratio (1.0-2.8) Lipase (23-300) U/L Urine RBC 1-5/hpf D (0-5/HPF) Urine WBC None seen (0-5/HPF) Urine Bacteria None seen (None) Urine Mucus 1+ H (Negative) Ur Culture Indicated? Cult not indicated COVID-19 PCR Negative (Negative) Blood Type Antibody Screen Point of Care Testing Stool Occult Blood Positive Urine Dip Bedside Urine Glucose Negative Bedside Urine Bilirubin - Negative Bedside Urine Ketone +++ 80 Urine Specific [place] 1.020 Bedside Urine Occult Blood - Negative Bedside Urine pH 6.0 Bedside Urine Protein - Negative Bedside Urine Urobilinogen - Negative Bedside Urine Nitrite - Negative Bedside Urine Leukocytes - Negative Esterase Discharge Plan Departure Patient Disposition: Admitted as Observation Clinical Impression: Acute upper gastrointestinal bleeding Discharge Date/Time: 12/20/19 18:45 Admit Date/Time: 12/20/19 18:46 Admit Provider: Florencia Lincoln <Gretel Manzo DO - Last Filed: 12/25/19 07:33> Cosign ED Attending Cosignature Attestation: I was immediately available in the depart ment for consultation. Documentation has been reviewed. I agree with assessment and plan.
[2019-12-20] MEDS: diphenhydrAMINE 50 MG/ML VIAL 25 MG IV (15:27)
[2019-12-20] MEDS: HALOPERIDOL 5 MG/ML VIAL 2 MG IV (15:29)
[2019-12-20] MEDS: OCTREOTIDE 100 MCG/ML VIAL 50 MCG IV (15:48)
[2019-12-20] MEDS: PANTOPRAZOLE 80 MG in SODIUM CHLORIDE 0.9% 100 ML 10 ML IV (15:58)
[2019-12-20] MEDS: OCTREOTIDE 500 MCG in SODIUM CHLORIDE 0.9% 100 ML 10.1 ML IV (15:58)
[2019-12-20 16:45] LABS: COVID19 -Nasal RAPID Negative (Negative)
[2019-12-20] MEDS: MAGNESIUM SULFATE 2 GM, FOLIC ACID 1 MG, THIAMINE 100 MG, MULTIVITAMIN 10 ML in SODIUM ... IV (21:05)
--- NOTE | 2019-12-20 21:29 | P.HP_ITS ---
History of Present Illness History of Present Illness Date Patient Seen: 12/20/19 Time Patient Seen: 21:13 Chief complaint: throwing up blood Narrative: Mr. Brian Massey is a 29-year-old male with a past medical history significant for kidney stones tobacco and cannabis use and alcohol abuse who presents to the ER following vomiting blood. Patient reports that he vomited up blood this morning and described as approximately 1 cup of bright red blood. He had associated symptoms of lightheadedness and describes having dark stool. The patient has history of alcohol abuse where he will binge drink beer and whiskey and endorses drinking 10 beers and approximately 1/4 whiskey on Friday during the football game. Reports he has been drinking since age 16. He reports he smokes a pack per day since age 18 for an 11 year pack history any regularly smokes cannabis and uses CBD to help with pain control 1 passing kidney stones. Patient denies any falls or trauma. He has had no fevers or chills no known COVID-19 exposures. He denies nasal congestion or sore throat and has had no chest pain or palpitations, shortness of breath cough or wheezing. Denies complaints of heartburn or abdominal pain. As stated he reports having dark-colored stools without change in frequency or consistency. He denies hematochezia. He denies urinary symptoms. Upon arrival to the ER the patient is afebrile with temperature of 98.3?, heart rate of 86, blood pressure 143/83, respirations of 18 saturating 100% on room air. No imaging was obtained, on laboratory analysis the patient has a white count of 9.9, hemoglobin 16.1 and hematocrit of 47.3 with platelets of 231. He has a PT of 11.9, INR 1.0 and a PTT of 29. His electrolytes are all within normal range she has a BUN of 16 and creatinine is 0.94. His nonfasting glucose is 83. He has a total bilirubin of 0.6, AST of 33, ALT of 42 and alkaline phosphatase of 75. His lipase is 50. His lactic acid is 1.5. Your provide contacted multiple facilities who unable to accept the patient. The spoke with , gastroenterology at [facility], who felt the patient has gastritis recommended PPI and non emergent endoscopy. General surgery was contacted and Dr. Martinez has agreed to consult and evaluate the patient. In the ER the patient started on an octreotide and Protonix infusion. Patient admitted to the medicine service for upper GI bleed with surgery consult. Patient History Medical History Alcohol abuse (Acute) Current smoker (Acute) Nephrolithiasis (Acute) Surgical History No pertinent past surgical history (Chronic) Family & Social History Family History (Updated 12/21/19 @ 01:07 by KRISTIN Castaneda) Father Kidney stones Diverticulitis Alcohol abuse Mother No significant medical problems Social History: household members significant other Prior Living Arrangements House Safety & Behavioral: Feels Safe in Current Yes Environment Been Physically Hurt or No Threatened By a Person Suicidal Ideation Description None Suicide Plan Description No Plan Tobacco & Substance use: Smoking Status Current every day smoker Smoking packs per day 1 alcohol intake frequency 3 or more drinks per day Substance Use Type marijuana Meds Home Medications and Allergies Home Medications Medication Instructions Recorded Confirmed Type No Known Home Medications 12/20/19 12/20/19 History Allergies Allergy/AdvReac Type Severity Reaction Status Date / Time No Known Drug Allergies Allergy Verified 12/20/19 13:53 Review of Systems Review of Systems ROS: Yes All systems reviewed with the patient and are negative except as otherwise documented Exam Vital Signs (past 8 hours): - 12/20/19 13:40 12/20/19 14:08 12/20/19 14:30 Temperature 98.3 F Pulse Rate 86 84 78 Respiratory Rate 18 Blood Pressure 143/83 H Pulse Oximetry 100 96 95 12/20/19 14:52 12/20/19 15:00 12/20/19 15:01 Temperature Pulse Rate 77 99 H 80 Respiratory Rate Blood Pressure 136/77 124/66 Pulse Oximetry 97 96 97 12/20/19 15:15 12/20/19 15:30 12/20/19 16:00 Temperature Pulse Rate 78 79 77 Respiratory Rate Blood Pressure 126/68 120/63 Pulse Oximetry 96 97 97 12/20/19 16:21 12/20/19 16:30 12/20/19 16:45 Temperature Pulse Rate 71 76 79 Respiratory Rate Blood Pressure 125/77 123/75 117/70 Pulse Oximetry 94 96 95 12/20/19 17:00 12/20/19 17:15 12/20/19 17:30 Temperature Pulse Rate 76 74 75 Respiratory Rate Blood Pressure 126/74 102/59 L 109/55 L Pulse Oximetry 96 96 97 12/20/19 17:45 12/20/19 18:00 12/20/19 18:34 Temperature 98.1 F Pulse Rate 78 71 69 Respiratory Rate 17 Blood Pressure 116/63 115/65 122/71 Pulse Oximetry 98 96 98 Oxygen Delivery Method Room Air Narrative Exam Narrative: GENERAL APPEARANCE: well developed, overweight male, in no acute distress. HEENT: Normocephalic, PERRLA, conjunctiva clear, EOMs intact without nystagmus, no sinus tenderness to percussion, no rhinorrhea, mucous membranes are moist and pink without lesions or exudate. NECK/THYROID: neck supple, no JVD, no carotid bruit, no thyromegaly, trachea midline. LYMPH NODES: no cervical or supraclavicular lymphadenopathy. SKIN: [place], warm and dry, no visible lesions, rashes, ulcerations or petechiae. HEART: regular rate and rhythm, S1-S2, no murmur, no rubs or gallops, brisk capillary refill, no edema LUNGS: clear to auscultation bilaterally, no coarseness crackles or wheezing, no cough present CHEST: Symmetrical movement, no accessory muscle use, good tidal volume. ABDOMEN: Soft, dull to percussion, no epigastric or abdominal tenderness, no guarding or peritoneal signs, no organomegaly, negative Mendoza sign, no flank pain, active bowel tones. BACK: Normal curvature, nontender to palpation, no CVA tenderness on percussion. EXTREMITIES: moves all extremities, strength is 5/5 and symmetrical, no deformities or joint effusions. NEUROLOGIC: AAO x4, no focal neurologic deficits, cranial nerves II-XII grossly intact, sensation intact to light touch, hearing grossly normal to speech. PSYCH: Good eye contact, cooperative, appropriate with stable behavior. Objective Labs Result Diagrams: 12/20/19 13:50 12/20/19 13:50 Labs: Laboratory Results - last 24 hr 12/20/19 12/20/19 12/20/19 13:50 13:50 13:50 WBC 9.9 RBC 5.31 Hgb 16.1 Hct 47.3 MCV 89.1 MCH 30.3 MCHC 34.1 RDW 13.2 Plt Count 231 Neut % (Auto) 70.9 Lymph % (Auto) 22.4 L [place] % (Auto) 5.3 Eos % (Auto) 0.8 L Baso % (Auto) 0.6 Neut # (Auto) 7000 Lymph # (Auto) 2200 [place] # (Auto) 500 Eos # (Auto) 100 Baso # (Auto) 100 PT 11.2 INR 1.0 APTT 29 D Sodium 141 Potassium 3.7 Chloride 104 Carbon Dioxide 26 BUN 16 Creatinine 0.94 Estimated GFR > 60.0 BUN/Creatinine Ratio 17.0 Glucose 83 Lactate Calcium 9.4 Magnesium Total Bilirubin 0.6 AST 33 ALT 42 Alkaline Phosphatase 75 Total Protein 8.0 Albumin 4.9 Globulin 3.1 Albumin/Globulin Ratio 1.6 Lipase 50 Urine RBC Urine WBC Urine Bacteria Urine Mucus Ur Culture Indicated? Nasal Screen MRSA (PCR) COVID-19 PCR Blood Type Antibody Screen 12/20/19 12/20/19 12/20/19 13:50 13:50 13:50 WBC RBC Hgb Hct MCV MCH MCHC RDW Plt Count Neut % (Auto) Lymph % (Auto) [place] % (Auto) Eos % (Auto) Baso % (Auto) Neut # (Auto) Lymph # (Auto) [place] # (Auto) Eos # (Auto) Baso # (Auto) PT INR APTT Sodium Potassium Chloride Carbon Dioxide BUN Creatinine Estimated GFR BUN/Creatinine Ratio Glucose Lactate 1.5 Calcium Magnesium 2.0 Total Bilirubin AST ALT Alkaline Phosphatase Total Protein Albumin Globulin Albumin/Globulin Ratio Lipase Urine RBC Urine WBC Urine Bacteria Urine Mucus Ur Culture Indicated? Nasal Screen MRSA (PCR) COVID-19 PCR Blood Type O Positive Antibody Screen Negative 12/20/19 12/20/19 12/20/19 14:40 16:25 18:58 WBC RBC Hgb Hct MCV MCH MCHC RDW Plt Count Neut % (Auto) Lymph % (Auto) [place] % (Auto) Eos % (Auto) Baso % (Auto) Neut # (Auto) Lymph # (Auto) [place] # (Auto) Eos # (Auto) Baso # (Auto) PT INR APTT Sodium Potassium Chloride Carbon Dioxide BUN Creatinine Estimated GFR BUN/Creatinine Ratio Glucose Lactate Calcium Magnesium Total Bilirubin AST ALT Alkaline Phosphatase Total Protein Albumin Globulin Albumin/Globulin Ratio Lipase Urine RBC 1-5/hpf D Urine WBC None seen Urine Bacteria None seen Urine Mucus 1+ H Ur Culture Indicated? Cult not indicated Nasal Screen MRSA (PCR) Negative for mrsa COVID-19 PCR Negative Blood Type Antibody Screen Assessment & Plan Assessment & Plan narrative: This is a 29-year-old male patient with a history of binge drinking with beer and whiskey since age 18. The endorsed heavy drinking yesterday and today vomited approximately 1 cup of bright red blood with associated lightheadedness and dark stools. 1. Upper GI bleed secondary to acute alcoholic gastritis, present on admission, active. -patient without prior history of GI bleeding and reports drinking heavily yesterday consuming 10 beers and 1 quart of whiskey. -swing the patient was began nausea vomit above 1 cup of bright red blood with associated lightheadedness. He endorses passing dark stools. No further recurrence of hematemesis. -hemoglobin hematocrit are 16.1 and 47.3 on admission labs with normal coagulation panel. His LFTs are all within normal limits and lipase is 50. No hepatomegaly. -general surgery is consulted and we thank Dr. Martinez for his evaluation and re commendations. -the patient is started on octreotide infusion in the emergency department. -in the ER the patient received Protonix 80 mg followed by infusion, the infusion is discontinued and ordered Protonix 40 mg twice daily. -absent further signs of bleeding in the patient remaining asymptomatic will recheck CBC in the morning 2. Alcohol abuse, chronic, stable -patient is a binge drinker predominantly consuming beer and whiskey. He reports he binges during weekends and during football games. -initiated CIWA protocol. -lorazepam p.o. or IV per CIWA protocol. -ordered banana bag now with thiamine 100 mg and folate 1 mg daily. 3. Nephrolithiasis, chronic, stable. -patient does not have a urologist at present but has been told that he has multiple bilateral kidney stones. He passes last own 1 month ago. -nephrolithiasis as complicated by uric acid production secondary to alcohol. -patient is presently pain free and has a known BUN of 16 and creatinine of 0.94. VTE prophylaxis: SCDs, chemical prophylaxis contraindicated due to active bleed IV fluid: Banana bag 125 cc/hour. Diet: NPO Code status: Full code, he designates his fiancee to be his surrogate decision maker. The patient is admitted to the hospital due to the severity of his symptoms need for further treatment and monitoring. Patient is admitted as observation with expected length of stay to be less than 2 midnights. COVID-19 COVID-19 status: Negative Result date/Date tested (Pos, Neg/Pending): 12/20/19 Scores GCS [place] coma scale eye opening: Spontaneous [place] coma scale verbal response: Orientated [place] coma scale motor response: Obey commands [place] coma scale total score: 15 Quality VTE Deep Vein Thrombosis/Pulmonary Embolism Present on Admission: No
--- NOTE | 2019-12-20 22:55 | PC.NURSE ---
1834 Pt admitted to 226 per stretcher from ED. AAOx4, CIWA 0, Protonix and octreotide drips in progress. Calm and cooperative with care, denies pain. Oriented to environment, bed in low and locked position call light in reach. PT NPO for EGD in am.
[2019-12-21] VITALS (15 sets, daily range): BP systolic 115–148; BP diastolic 65–98; PULSE 56–87; RESP 10–20; TEMP 36.2–36.9; O2SAT 93–98
--- NOTE | 2019-12-21 | PATH_ITS ---
[facility] Accession Number: [id number] . 01 Material submitted: . gastrointestinal site - GASTRIC BIOPSY . 01 Clinical history: . THROWING UP BLOOD . 02 Diagnosis: Gastric Biopsy: Portions of gastric antral and body type mucosa with mild chronic inflammation. Negative for Helicobacter organisms by immunohistochemistry. Negative for intestinal metaplasia. Negative for dysplasia and malignancy. MRV 12/27/2019 1746 Local . 02 Electronically signed: . Rosenda Ruiz MD, Pathologist NPI- [id number] . 01 Gross description: . GASTRIC BIOPSY: Received in formalin is 1 fragment(s) of jennings, soft tissue measuring 0.4 x 0.3 x 0.2 cm submitted entirely in 1 cassette(s) /QBJ 12/22/2019 0852 Local . 02 Microscopic: . An immunohistochemical stain was performed to evaluate for Helicobacter organisms and is negative. The control stain showed appropriate reactivity. . * This test was developed and its performance characteristics determined by [facility]. It has not been cleared or approved by the U.S. Food and Drug Administration. The FDA has determined that such clearance or approval is not necessary. This test is used for clinical purposes. It should not be regarded as investigational or for research. . 02 Pathologist provided ICD-10: K29.70 . 02 CPT . 424806, [id number] Performed at: 01 [facility] [address] [facility], [place], [place] [id number] MD Chin Mesa MD Phone: [phone] Performed at: 02 [facility] [place] [address] [place], [place] [id number] MD Bernadine Zuniga MD Phone: [phone]
[2019-12-21] MEDS: SODIUM CHLORIDE 0.9% 1,000 ML 125 ML IV (04:21)
[2019-12-21 07:12] LABS: Add Manual Diff / Slide Review NO; Basophils Absolute Auto 100 /uL (0-100); Eosinophils Absolute Auto 200 /uL (0-450); Eosinophils Percent Auto 3.1 % (2-4); Hematocrit 45.8 % (41-53); Hemoglobin 15.3 g/dL (13.5-17.5); Lymphocytes Absolute Auto 1700 /uL (1100-4500); Lymphocytes Percent Auto 27.8 % (25-40); Mean Corpuscular HGB Conc 33.4 % (30-36); Mean Corpuscular Hemoglobin 30.4 PG (26-34); Mean Corpuscular Volume 90.9 fL (80-100); Monocytes Absolute Auto 400 /uL (0-900); Monocytes Percent Auto 7.4 % (3-14); Neutrophils Absolute Auto 3700 /uL (1500-7000); Neutrophils Percent Auto 60.7 % (50-75); Platelet Count 198 X10^3/uL (150-400); Red Blood Cell Count 5.04 X10^6/uL (4.5-5.9); Red Cell Distribution Width 13.1 % (11.6-14.8); White Blood Cell Count 6.1 X10^3/uL (4.5-11.0)
[2019-12-21 07:19] LABS: BUN Creatinine Ratio 16.3 (6-22); Blood Urea Nitrogen 14 mg/dL (9-20); Calcium 8.5 mg/dL (8.4-10.2); Carbon Dioxide 24 mmol/L (22-32); Chloride 105 mmol/L (98-107); Estimated Glomerular Filt Rate > 60.0 mL/min (>60); Glucose 94 mg/dL (70-100); HEMOLYSIS < 15 (0-50); Sodium 136 mmol/L (137-145)
--- NOTE | 2019-12-21 09:27 | P.CONS_ITS ---
History of Present Illness Consult details Date Patient Seen: 12/21/19 Time Patient Seen: 09:27 Chief complaint: throwing up blood Narrative: 29-year-old male seen in consultation in the hospital setting for acute GI bleed. Had an episode of heavy alcohol use followed by some retching and then hematemesis. He describes the blood as bright red of at least 1 cup v olume. He was evaluated in the emergency room late yesterday evening started on octreotide and Protonix, he is hemodynamically stable initial hematocrit is 46. Over the past 12 hours he has had no further episodes of hematemesis. No history of peptic ulcer disease. Meds Home Medications and Allergies Home Medications Medication Instructions Recorded Confirmed Type No Known Home Medications 12/20/19 12/20/19 History Allergies Allergy/AdvReac Type Severity Reaction Status Date / Time No Known Drug Allergies Allergy Verified 12/20/19 13:53 Review of Systems Review of Systems Narrative: A 10 point review of systems is negative except as noted in the HPI Exam Vital Signs (past 8 hours): - 12/21/19 04:00 12/21/19 05:05 12/21/19 06:19 Temperature 97.8 F Pulse Rate 64 Respiratory Rate 11 L 16 Blood Pressure 115/73 Pulse Oximetry 96 96 12/21/19 07:30 Temperature 97.7 F Pulse Rate 58 L Respiratory Rate 16 Blood Pressure 133/65 Pulse Oximetry 98 Oxygen Delivery Method Room Air Oxygen Flow Rate 0 Narrative Exam Narrative: General-no acute distress, well nourished adult male HEENT-moist mucous membranes, no scleral icterus Neck-supple, no lymphadenopathy Chest- non labored respirations, clear to auscultation bilaterally Cardiac-regular rate no peripheral edema Abdomen-soft, nontender, non distended Extremities-warm, well perfused Neurological-alert and oriented, no focal deficits Objective Labs Result Diagrams: 12/21/19 06:56 12/21/19 06:56 Labs: Laboratory Results - last 24 hr 12/20/19 12/20/19 12/20/19 13:50 13:50 13:50 WBC 9.9 RBC 5.31 Hgb 16.1 Hct 47.3 MCV 89.1 MCH 30.3 MCHC 34.1 RDW 13.2 Plt Count 231 Neut % (Auto) 70.9 Lymph % (Auto) 22.4 L [place] % (Auto) 5.3 Eos % (Auto) 0.8 L Baso % (Auto) 0.6 Neut # (Auto) 7000 Lymph # (Auto) 2200 [place] # (Auto) 500 Eos # (Auto) 100 Baso # (Auto) 100 PT 11.2 INR 1.0 APTT 29 D Sodium 141 Potassium 3.7 Chloride 104 Carbon Dioxide 26 BUN 16 Creatinine 0.94 Estimated GFR > 60.0 BUN/Creatinine Ratio 17.0 Glucose 83 Lactate Calcium 9.4 Magnesium Total Bilirubin 0.6 AST 33 ALT 42 Alkaline Phosphatase 75 Total Protein 8.0 Albumin 4.9 Globulin 3.1 Albumin/Globulin Ratio 1.6 Lipase 50 Urine RBC Urine WBC Urine Bacteria Urine Mucus Ur Culture Indicated? Nasal Screen MRSA (PCR) COVID-19 PCR Blood Type Antibody Screen 12/20/19 12/20/19 12/20/19 13:50 13:50 13:50 WBC RBC Hgb Hct MCV MCH MCHC RDW Plt Count Neut % (Auto) Lymph % (Auto) [place] % (Auto) Eos % (Auto) Baso % (Auto) Neut # (Auto) Lymph # (Auto) [place] # (Auto) Eos # (Auto) Baso # (Auto) PT INR APTT Sodium Potassium Chloride Carbon Dioxide BUN Creatinine Estimated GFR BUN/Creatinine Ratio Glucose Lactate 1.5 Calcium Magnesium 2.0 Total Bilirubin AST ALT Alkaline Phosphatase Total Protein Albumin Globulin Albumin/Globulin Ratio Lipase Urine RBC Urine WBC Urine Bacteria Urine Mucus Ur Culture Indicated? Nasal Screen MRSA (PCR) COVID-19 PCR Blood Type O Positive Antibody Screen Negative 12/20/19 12/20/19 12/20/19 14:40 16:25 18:58 WBC RBC Hgb Hct MCV MCH MCHC RDW Plt Count Neut % (Auto) Lymph % (Auto) [place] % (Auto) Eos % (Auto) Baso % (Auto) Neut # (Auto) Lymph # (Auto) [place] # (Auto) Eos # (Auto) Baso # (Auto) PT INR APTT Sodium Potassium Chloride Carbon Dioxide BUN Creatinine Estimated GFR BUN/Creatinine Ratio Glucose Lactate Calcium Magnesium Total Bilirubin AST ALT Alkaline Phosphatase Total Protein Albumin Globulin Albumin/Globulin Ratio Lipase Urine RBC 1-5/hpf D Urine WBC None seen Urine Bacteria None seen Urine Mucus 1+ H Ur Culture Indicated? Cult not indicated Nasal Screen MRSA (PCR) Negative for mrsa COVID-19 PCR Negative Blood Type Antibody Screen 12/21/19 12/21/19 06:56 06:56 WBC 6.1 RBC 5.04 Hgb 15.3 Hct 45.8 MCV 90.9 MCH 30.4 MCHC 33.4 RDW 13.1 Plt Count 198 Neut % (Auto) 60.7 Lymph % (Auto) 27.8 [place] % (Auto) 7.4 Eos % (Auto) 3.1 Baso % (Auto) 1.0 Neut # (Auto) 3700 Lymph # (Auto) 1700 [place] # (Auto) 400 Eos # (Auto) 200 Baso # (Auto) 100 PT INR APTT Sodium 136 L Potassium 4.0 Chloride 105 Carbon Dioxide 24 BUN 14 Creatinine 0.86 Estimated GFR > 60.0 BUN/Creatinine Ratio 16.3 Glucose 94 Lactate Calcium 8.5 Magnesium Total Bilirubin AST ALT Alkaline Phosphatase Total Protein Albumin Globulin Albumin/Globulin Ratio Lipase Urine RBC Urine WBC Urine Bacteria Urine Mucus Ur Culture Indicated? Nasal Screen MRSA (PCR) COVID-19 PCR Blood Type Antibody Screen Assessment & Plan Assessment & Plan narrative: 29-year-old male with upper GI bleed following alcohol binge hemodynamically stable. Esophagoduodenoscopy for diagnostic and therapeutic purpose is recommended. This would best be performed with anesthesia available for sedation measures given his recent episodes of hematemesis which pose an airway concern. -NPO IV fluid -EGD this afternoon
--- NOTE | 2019-12-21 13:09 | PC.NURSE ---
Addendum entered by Shaniqua Gloria R.N. 12/21/19 14:52: Pt returned to room 226 at 1445, walked into room without issue. Denies pain. VSS. Dr. Lincoln updated. Original Note: Day Shift Pt off floor for EGD at 1309 via wheelchair. NPO. Denies nausea, denies pain.
[2019-12-21] MEDS: LACTATED RINGERS 1,000 ML 42 ML IV (14:00)
--- NOTE | 2019-12-21 14:28 | PM.OP.ENDO ---
Operative Date/Time/Diagnoses Date of procedure: 12/21/19 Time of procedure: 14:41 Pre-op diagnosis: GI bleed Post-op diagnosis: same Procedure & Clinicians Study performed: esophagoduodenoscopy Same procedure as scheduled: Yes Indications: 29-year-old male hemodynamically stable presented with hematemesis after heavy alcohol use and retching Surgeon: Jeremiah Martinez Procedure Notes SCOAP/Timeout: Performed Procedure in detail: Patient placed supine on the table. Time out was performed. He was intubated with an endotracheal tube. A bite block was placed. the scope was inserted into the mouth and advanced through the esophagus and into the stomach. The pylorus was intubated. There was inflammation of the duodenum as well as the entirety of the stomach consistent with gastritis, no active bleeding or ulcers. Two random biopsies were taken with the forceps within the stomach labeled gastric biopsy. Hemostasis was observed. The scope was retroflexed within the stomach and there was no hiatal hernia. The scope was withdrawn into the esophagus the Z line was seen at 40 cm from the incisions. There was no Moe's esophagitis or masses or strictures. Stomach was desufflated and scope removed. Patient tolerated procedure well. Findings: gastritis Specimen(s): other (Gastric biopsy) Complications: none Impression: Gastritis Post-procedure Recommendations: Continue medication(s) (Protonix) Disposition: Acute Care
--- NOTE | 2019-12-21 14:54 | PM.DS.1 ---
History of Present Illness History of Present Illness Date Patient Seen: 12/21/19 Chief complaint: throwing up blood Narrative: Mr. Brian Massey is a 29-year-old male with a past medical history significant for kidney stones tobacco and cannabis use and alcohol abuse who presents to the ER following vomiting blood. Patient reports that he vomited up blood this morning and described as approximately 1 cup of bright red blood. He had associated symptoms of lightheadedness and describes having dark stool. The patient has history of alcohol abuse where he will binge drink beer and whiskey and endorses drinking 10 beers and approximately 1/4 whiskey on Friday during the football game. Reports he has been drinking since age 16. He reports he smokes a pack per day since age 18 for an 11 year pack history any regularly smokes cannabis and uses CBD to help with pain control 1 passing kidney stones. Patient denies any falls or trauma. He has had no fevers or chills no known COVID-19 exposures. He denies nasal congestion or sore throat and has had no chest pain or palpitations, shortness of breath cough or wheezing. Denies complaints of heartburn or abdominal pain. As stated he reports having dark-colored stools without change in frequency or consistency. He denies hematochezia. He denies urinary symptoms. Upon arrival to the ER the patient is afebrile with temperature of 98.3?, heart rate of 86, blood pressure 143/83, respirations of 18 saturating 100% on room air. No imaging was obtained, on laboratory analysis the patient has a white count of 9.9, hemoglobin 16.1 and hematocrit of 47.3 with platelets of 231. He has a PT of 11.9, INR 1.0 and a PTT of 29. His electrolytes are all within normal range she has a BUN of 16 and creatinine is 0.94. His nonfasting glucose is 83. He has a total bilirubin of 0.6, AST of 33, ALT of 42 and alkaline phosphatase of 75. His lipase is 50. His lactic acid is 1.5. Your provide contacted multiple facilities who unable to accept the patient. The spoke with , gastroenterology at [facility], who felt the patient has gastritis recommended PPI and non emergent endoscopy. General surgery was contacted and Dr. Martinez has agreed to consult and evaluate the patient. In the ER the patient started on an octreotide and Protonix infusion. Patient admitted to the medicine service for upper GI bleed with surgery consult. Discharge Providers Provider Date of admission: 12/20/19 18:46 Discharge Date: 12/21/19 Consults: 12/20/19 19:49 Consult to Dietitian, Adult Routine Comment: Reason For Exam: Upper GI bleed, alcoholic gastritis Consult to Discharge Planning Routine Comment: 12/20/19 19:58 Consult to General Surgery Routine Comment: Consulting Provider: Jeremiah Martinez Reason for consultation: Upper GI bleed Has provider been notified: Yes Discharge provider: Florencia Lincoln MD Summary Hospital Course Discharge Diagnosis: 1. Upper GI bleed secondary to acute gastritis 2. Alcohol dependence 3. Tobacco dependence 4. Cannibus Use Hospital Course: Patient was admitted to the hospital for evaluation of hematemesis. During the hospital stay the patient had no further hematemesis or melena. He had no evidence of alcohol withdrawal. Patient had no tremors hallucinations or seizures. The patient underwent upper endoscopy. There was no evidence of varices. Upper endoscopy revealed gastritis. The patient was transitioned from IV Protonix to oral Protonix his diet was advanced. The patient initially was treated with octreotide in the emergency which was discontinued upon admission. Patient had no evidence of significant blood loss anemia. He was counseled to discontinue drinking. He was deemed appropriate for discharge and arrangements were made for him to be discharged home. Exam Vital Signs (past 8 hours): - 12/21/19 07:30 12/21/19 09:40 12/21/19 11:20 Temperature 97.7 F 98.1 F Pulse Rate 58 L 56 L Respiratory Rate 16 16 Blood Pressure 133/65 117/75 Pulse Oximetry 98 98 97 12/21/19 12:48 12/21/19 13:22 12/21/19 14:23 Temperature 98.1 F Pulse Rate 59 L 83 Respiratory Rate 16 12 Blood Pressure 134/87 148/94 H Pulse Oximetry 97 98 97 12/21/19 14:29 12/21/19 14:34 12/21/19 14:45 Temperature 97.6 F 97.2 F L 97.7 F Pulse Rate 87 78 65 Respiratory Rate 15 10 L 16 Blood Pressure 144/98 H 141/97 H 137/92 H Pulse Oximetry 96 93 95 Oxygen Delivery Method Room Air Oxygen Flow Rate 0 Narrative Exam Narrative: Pleasant male in no acute distress Lungs: Clear to auscultation Cardiac exam: Regular rate and rhythm normal S1-S2 Abdomen soft nontender nondistended Extremities: No edema Objective Labs Result Diagrams: 12/21/19 06:56 12/21/19 06:56 Labs: Laboratory Results - last 24 hr 12/20/19 12/20/19 12/20/19 13:50 13:50 13:50 WBC RBC Hgb Hct MCV MCH MCHC RDW Plt Count Neut % (Auto) Lymph % (Auto) [place] % (Auto) Eos % (Auto) Baso % (Auto) Neut # (Auto) Lymph # (Auto) [place] # (Auto) Eos # (Auto) Baso # (Auto) APTT 29 D Sodium Potassium Chloride Carbon Dioxide BUN Creatinine Estimated GFR BUN/Creatinine Ratio Glucose Calcium Magnesium 2.0 Urine RBC Urine WBC Urine Bacteria Urine Mucus Ur Culture Indicated? Nasal Screen MRSA (PCR) COVID-19 PCR Blood Type O Positive Antibody Screen Negative 12/20/19 12/20/19 12/20/19 14:40 16:25 18:58 WBC RBC Hgb Hct MCV MCH MCHC RDW Plt Count Neut % (Auto) Lymph % (Auto) [place] % (Auto) Eos % (Auto) Baso % (Auto) Neut # (Auto) Lymph # (Auto) [place] # (Auto) Eos # (Auto) Baso # (Auto) APTT Sodium Potassium Chloride Carbon Dioxide BUN Creatinine Estimated GFR BUN/Creatinine Ratio Glucose Calcium Magnesium Urine RBC 1-5/hpf D Urine WBC None seen Urine Bacteria None seen Urine Mucus 1+ H Ur Culture Indicated? Cult not indicated Nasal Screen MRSA (PCR) Negative for mrsa COVID-19 PCR Negative Blood Type Antibody Screen 12/21/19 12/21/19 06:56 06:56 WBC 6.1 RBC 5.04 Hgb 15.3 Hct 45.8 MCV 90.9 MCH 30.4 MCHC 33.4 RDW 13.1 Plt Count 198 Neut % (Auto) 60.7 Lymph % (Auto) 27.8 [place] % (Auto) 7.4 Eos % (Auto) 3.1 Baso % (Auto) 1.0 Neut # (Auto) 3700 Lymph # (Auto) 1700 [place] # (Auto) 400 Eos # (Auto) 200 Baso # (Auto) 100 APTT Sodium 136 L Potassium 4.0 Chloride 105 Carbon Dioxide 24 BUN 14 Creatinine 0.86 Estimated GFR > 60.0 BUN/Creatinine Ratio 16.3 Glucose 94 Calcium 8.5 Magnesium Urine RBC Urine WBC Urine Bacteria Urine Mucus Ur Culture Indicated? Nasal Screen MRSA (PCR) COVID-19 PCR Blood Type Antibody Screen Discharge Assessment & Plan Assessment and Plan Assessment: Upper GI bleed Gastritis Alcohol dependent Plan of Treatment: Discharge home Protonix 40 mg daily Discontinue drinking alcohol Discharge Plan Discharge Plan Discharge Problem: Acute upper gastrointestinal bleeding Patient Disposition: Home Discharge orders & Medications Prescriptions: New pantoprazole [Protonix] 40 mg tablet,delayed release (DR/EC) 40 mg PO DAILY Qty: 30 RF: 0 Diet/Activity/Treatments Diet: Diet as Tolerated Visit Report/Discharge Packet Instructions: DI for Gastritis Discharge Data Attending Provider: Florencia Lincoln Admit Date/Time: 12/20/19 18:46 Quality VTE Deep Vein Thrombosis/Pulmonary Embolism Present on Admission: No
--- NOTE | 2019-12-21 15:41 | PC.NURSE ---
1535 discharge instructions given to patient, VSS, IV x 2 removed. Rx for protonix given to patient. Escorted out by [employer].
== END 2019-12-21 15:35 | disposition home or self-care (01) ==
LOC: ED 18:47 → ICU 12-21 07:48 → AC 12-21 13:32 → ICU 12-21 13:32
PROVIDERS: Emergency Medicine; Nurse Practitioner Adult Health; Surgery; Admitting Provider Internal Medicine; Emergency Provider Nurse Practitioner Family; Referring Provider Nurse Practitioner Family; Visit Provider Internal Medicine
PROC: 0DJ08ZZ Inspection of Upper Intestinal Tract, Via Natural or Artificial Opening Endoscopic (ICD-10-PCS; CPT 43235; principal; 2019-12-21 13:45)
DX: K29.21 Alcoholic gastritis with bleeding (principal); F10.10 Alcohol abuse, uncomplicated; F17.210 Nicotine dependence, cigarettes, uncomplicated; F12.90 Cannabis use, unspecified, uncomplicated; N20.0 Calculus of kidney; Z87.442 Personal history of urinary calculi; Z11.59 Encounter for screening for other viral diseases
CPT/HCPCS: 43239; 36415; 80048; 80053; 81003; 81015; 82272; 83605; 83690; 83735; 85025; 85610; 85730; 86850; 86900; 86901; 87635; 87797; 93005; 96361; 96365; 96366; 96375; 99221; 99284; G0378; C9113; J0330; J1200; J1630; J2250; J2354; J2405; J2704; J3010; J3475

== ENCOUNTER 2020-02-08 06:46 | Emergency (ER) | payer OTHER, MEDICAID, SELFPAY ==
[2019-12-20 18:52] VITALS: BMI 31.5
[2020-02-08 06:55] VITALS: BP 158/102; PULSE 70; RESP 18; TEMP 36.4; O2SAT 95; BMI 30.4
[2020-02-08] MEDS: KETOROLAC 60 MG/2 ML VIAL 30 MG IV (07:20)
[2020-02-08] MEDS: SODIUM CHLORIDE 0.9% 1,000 ML 1000 ML IV (07:20)
[2020-02-08] MEDS: ONDANSETRON 4 MG/2 ML INJ IV (07:20)
[2020-02-08 07:30] LABS: Add Manual Diff / Slide Review NO; Basophils Absolute Auto 100 /uL (0-100); Basophils Percent Auto 1.1 % (0-2); Eosinophils Absolute Auto 300 /uL (0-450); Eosinophils Percent Auto 4.5 % (2-4); Hematocrit 47.3 % (41-53); Hemoglobin 16.1 g/dL (13.5-17.5); Lymphocytes Absolute Auto 2100 /uL (1100-4500); Lymphocytes Percent Auto 34.1 % (25-40); Mean Corpuscular Hemoglobin 30.3 PG (26-34); Mean Corpuscular Volume 89.4 fL (80-100); Monocytes Absolute Auto 600 /uL (0-900); Monocytes Percent Auto 9.1 % (3-14); Neutrophils Absolute Auto 3200 /uL (1500-7000); Neutrophils Percent Auto 51.2 % (50-75); Platelet Count 276 X10^3/uL (150-400); Red Blood Cell Count 5.29 X10^6/uL (4.5-5.9); Red Cell Distribution Width 13.4 % (11.6-14.8); White Blood Cell Count 6.2 X10^3/uL (4.5-11.0)
[2020-02-08 07:35] LABS: Appearance Urine UA CLOUDY; Bilirubin Urine UA NEGATIVE (NEGATIVE); Color Urine UA YELLOW; Glucose Urine UA NEGATIVE (Negative); Ketones Urine UA NEGATIVE (NEGATIVE); Leukocyte Esterase Urine UA NEGATIVE (NEGATIVE); Nitrite Urine UA NEGATIVE (Negative); Occult Blood Urine UA 3+ (Negative); Protein Urine UA TRACE (Negative); Urobilinogen Urine UA 0.2 E.U./dL (0.2); pH Urine UA 7.5 (4.5-8.0)
[2020-02-08 07:40] LABS: Alanine Aminotransferase 28 IU/L (<50); Albumin 4.5 g/dL (3.5-5.0); Albumin Globulin Ratio 1.5 (1.0-2.8); Alkaline Phosphatase 65 U/L (38-126); Aspartate Aminotransferase 24 IU/L (17-59); BUN Creatinine Ratio 12.6 (6-22); Bilirubin Total 0.8 mg/dL (0.2-1.3); Blood Urea Nitrogen 12 mg/dL (9-20); Calcium 9.6 mg/dL (8.4-10.2); Carbon Dioxide 26 mmol/L (22-32); Chloride 105 mmol/L (98-107); Estimated Glomerular Filt Rate > 60.0 mL/min (>60); Glucose 111 mg/dL (70-100); HEMOLYSIS < 15 (0-50); Lipase 47 U/L (23-300); Potassium 3.5 mmol/L (3.4-5.1); Sodium 137 mmol/L (137-145); Total Protein 7.5 g/dL (6.3-8.2)
--- NOTE | 2020-02-08 07:40 | ED_ITS ---
HPI - Male Genitourinary General Chief complaint: Urogenital-Male Stated complaint: pain in back lower front Time Seen by Provider: 02/08/20 06:59 Source: patient Mode of arrival: Ambulatory Limitations: no limitations History of Present Illness HPI Narrative: This is a 29-year-old male who comes to the emergency department with complaint of right-sided back and lower abdominal pain. Patient states it came on suddenly this morning about 5-6:00 a.m.. Woke him up from sleep. He states he has had kidney stones in the past he suspects that the case but this does feel different locations slightly different and he typically gets his stones on the left. He does still have his appendix. He has not had any fever s, he did have some nausea and vomiting this morning. He has had the sensation that he needs to have a bowel movement but has not had 1. He states that his urine was discolored. He denies any urinary frequency, dysuria but has had a sense of urgency. He denies any other medical problems currently, he is recovering from alcohol abuse. He has had lithotripsy once before in [facility] he does not have a current urologist. He denies any other surgeries. He has had an EGD on his last hospital stay and does not have any varices. He does use tobacco, states that he has quit alcohol, he does use marijuana denies other illicit. Related Data Previous Rx's Medication Instructions Recorded pantoprazole [Protonix] 40 mg PO DAILY #30 tab 12/21/19 hydrocodone-acetaminophen [Christmas] 1 tab PO Q6H PRN #10 tab 02/08/20 tamsulosin [Flomax] 0.4 mg PO DAILY #7 cap 02/08/20 Allergies Allergy/AdvReac Type Severity Reaction Status Date / Time No Known Drug Allergies Allergy Verified 12/20/19 13:53 Review of Systems Review of Systems ROS Unobtainable: All systems reviewed & are unremarkable except as noted in HPI and below Patient History Medical History (Updated 02/08/20 @ 08:30 by Ana Fabian DO) Alcohol abuse Current smoker Nephrolithiasis Surgical History (Updated 02/08/20 @ 07:47 by Ana Fabian DO) History of lithotripsy No pertinent past surgical history Family History Father Kidney stones Diverticulitis Alcohol abuse Mother No significant medical problems Social History household members: significant other Smoking Status: Current every day smoker Smoking Status: Current every day smoker alcohol intake frequency: 3 or more drinks per day Substance Use Type: marijuana Exam Narrative Exam Narrative: GENERAL: Alert and oriented x three, well-nourished male in moderate distress. HEENT: Head normocephalic, atraumatic, EOMI, pupils reactive, face symmetric, moist mucous membranes NECK: Supple, full range of motion CARDIOVASCULAR: Regular rate and rhythm without murmurs, rubs or gallops. RESPIRATORY: Breath sounds equal bilaterally, no wheezes rales or rhonchi. ABDOMEN: Soft, positive for right-sided tenderness mild to moderately on the upper quadrant and moderate on the lower quadrant. Normoactive bowel sounds all 4 quadrants. No guarding or rebound, rigidity, no mass : Positive for right CVA tenderness, negative for left CVA tenderness EXTREMITIES: Normal range of motion, no clubbing or edema. Neurovascularly intact NEUROLOGICAL: Cranial nerves II through XII grossly intact. Moving all extremities SKIN: Warm, dry, no petechiae, no rashes or lesions. Initial Vital Signs Initial Vital Signs: Vital Signs Temperature 97.6 F 02/08/20 06:55 Pulse Rate 70 02/08/20 06:55 Respiratory Rate 18 02/08/20 06:55 Blood Pressure 158/102 H 02/08/20 06:55 Pulse Oximetry 95 02/08/20 06:55 Course Orders Ordered: Discontinued Medications Sodium Chloride (Normal Saline 0.9%) 1,000 mls @ 1,000 mls/hr IV BOLUS ONE Stop: 02/08/20 08:11 Last Infusion: 02/08/20 09:11 Dose: 0 mls/hr Documented by: Admin: 02/08/20 07:20 Dose: 1,000 mls/hr Documented by: EVER Ketorolac Tromethamine (Ketorolac 60 Mg/2 Ml Vial) 30 mg IV NOW ONE Stop: 02/08/20 07:13 Last Admin: 02/08/20 07:20 Dose: 30 mg Documented by: EVER Ondansetron HCl (Ondansetron 4 Mg/2 Ml Inj) 4 mg IV NOW ONE Stop: 02/08/20 07:13 Last Admin: 02/08/20 07:20 Dose: 4 mg Documented by: EVER Tamsulosin HCl (Tamsulosin 0.4 Mg Capsule) 0.4 mg PO NOW ONE Stop: 02/08/20 08:31 Last Admin: 02/08/20 09:10 Dose: 0.4 mg Documented by: NADIA Reevaluation(s) Reevaluation #1: Patient is feeling significantly better, he is requesting a strainer to urinate. Reviewed his labs as well as CT findings. He feels comfortable returning home and does ask for prescription for Flomax as well. He is interested in referral to urologist as he has recurrent stones. Time: 09:04 Vital Signs Vital signs: Vital Signs - 8 hr 02/08/20 06:55 02/08/20 08:40 Temperature 97.6 F Pulse Rate 70 73 Respiratory Rate 18 14 Blood Pressure 158/102 H 134/86 Pulse Oximetry 95 99 MDM - Male Genitourinary Lab Data Attestation: I reviewed the patient's lab results. Lab results narrative: Patient labs shows slightly elevated glucose. Urine shows trace protein, occult blood. Result diagrams: 02/08/20 07:10 02/08/20 07:10 Labs: Lab Results 02/08/20 02/08/20 02/08/20 Range/Units 07:10 07:10 07:20 WBC 6.2 (4.5-11.0) X10^3/uL RBC 5.29 (4.5-5.9) X10^6/uL Hgb 16.1 (13.5-17.5) g/dL Hct 47.3 (41-53) % MCV 89.4 (80-100) fL MCH 30.3 (26-34) PG MCHC 34.0 (30-36) % RDW 13.4 (11.6-14.8) % Plt Count 276 (150-400) X10^3/uL Neut % (Auto) 51.2 (50-75) % Lymph % (Auto) 34.1 (25-40) % [place] % (Auto) 9.1 (3-14) % Eos % (Auto) 4.5 H (2-4) % Baso % (Auto) 1.1 (0-2) % Neut # (Auto) 3200 (7683-0690) /uL Lymph # (Auto) 2100 (8962-4895) /uL [place] # (Auto) 600 (0-900) /uL Eos # (Auto) 300 (0-450) /uL Baso # (Auto) 100 (0-100) /uL Sodium 137 (137-145) mmol/L Potassium 3.5 (3.4-5.1) mmol/L Chloride 105 (98-107) mmol/L Carbon Dioxide 26 (22-32) mmol/L BUN 12 (9-20) mg/dL Creatinine 0.95 (0.66-1.25) mg/dL Estimated GFR > 60.0 (>60) mL/min BUN/Creatinine Ratio 12.6 (6-22) Glucose 111 H (70-100) mg/dL Calcium 9.6 (8.4-10.2) mg/dL Total Bilirubin 0.8 (0.2-1.3) mg/dL AST 24 (17-59) IU/L ALT 28 (<50) IU/L Alkaline Phosphatase 65 (38-126) U/L Total Protein 7.5 (6.3-8.2) g/dL Albumin 4.5 (3.5-5.0) g/dL Globulin 3.0 (1.7-4.1) g/dL Albumin/Globulin Ratio 1.5 (1.0-2.8) Lipase 47 (23-300) U/L Urine Color Yellow Urine Appearance Cloudy Urine pH 7.5 (4.5-8.0) Ur Specific [place] 1.020 (1.000-1.035) Urine Protein Trace H (Negative) Urine Glucose (UA) Negative (Negative) g/dL Urine Ketones Negative (NEGATIVE) Urine Occult Blood 3+ H (Negative) Urine Nitrate Negative (Negative) Urine Bilirubin Negative (NEGATIVE) Urine Urobilinogen 0.2 (0.2) E.U./dL Ur Leukocyte Esterase Negative (NEGATIVE) Urine RBC 10-30/hpf H (0-5/HPF) Urine WBC 1-5/hpf (0-5/HPF) Amorphous Sediment 3+ Urine Bacteria Moderate (10-30) H (None) Ur Culture Indicated? Cult not indicated Imaging Data CT scan - abdomen/pelvis: Radiologist's Impression: [address], [place] [address]QV Scan ReportSigned Patient: Brian Massey TMR#: [id number]: [id number]:[id number]/Sex: 29 / MDate of Service: 02/08/20Loc: EDAccession Number: [id number] Procedure: CT abdomen pelvis w con Ordering Provider: Ana Fabian D.O. PROCEDURE: CT ABDOMEN PELVIS W CON INDICATIONS: RLQ pain, likely stone but feels different TECHNIQUE: After the administration of intravenous contrast, 5 mm thick sections acquired from the diaphragm to the symphysis. 5 mm coronal and sagittal reformats were acquired. For radiation dose reduction, the following was used: automated exposure control, adjustment of mA and/or kV according to patient size. COMPARISON: [facility], CT, CT ABDOMEN PELVIS W CON, 05/08/2018, 19:36. FINDINGS: Image quality: Excellent. ABDOMEN: Lung bases: Lung bases are clear. Heart size is normal. Solid organs: Liver is normal in size and enhancement. Gallbladder appears normal . Biliary system is non dilated. Pancreas enhances normally. Spleen is normal in size and enhancement. No adrenal nodules. Kidneys demonstrate normal size and enhancement, without hydronephrosis. 2 small right collecting system stones are present measuring 2 mm each. A similar size stone on the left is present. Peritoneum and bowel: Bowel loops demonstrate normal wall thickness and caliber. No free fluid or air. Nodes and vessels: No retroperitoneal or mesenteric adenopathy by size crit eria. Aorta and inferior vena cava are normal in size. Miscellaneous: No ventral hernias. PELVIS: Genitourinary: Bladder wall thickness is normal. Suspect far distal 1mm right ureteral stone seen on series 2 image 77. Miscellaneous: No inguinal hernias or adenopathy. Suspect Bones: No suspicious bony lesions. No vertebral body compression fractures. IMPRESSION: Probable distal right ureteral stone measuring 1 mm, faintly seen, at the bladder margin. Added nonobstructive stones in each renal collecting system. No hydronephrosis. Dictated by: Virgil Newton M.D. on 02/08/2020 at 8:10 Approved by: Virgil Newton M.D. on 02/08/2020 at 8:20 Discharge Plan Departure Patient Disposition: Home Clinical Impression: Calculus of distal right ureter Instructions: DI for Kidney Stones Activity Restrictions/Additional Instructions: Follow-up in the next 1-2 weeks if your having any continued symptoms. Continue to strain your urine. Take Flomax once daily until gone You may take ibuprofen up to 800 mg every 8 hours as needed for pain. You may take pain medication as prescribed, this medication can make you sleepy do not drive, perform hazardous activities or make any major decisions while taking it. Return to the ER for fevers, worsening abdominal, back or flank pain, persistent vomiting, lightheadedness or passing out, inability urinate, black or bloody stools or other new or concerning symptoms. Prescriptions: New tamsulosin [Flomax] 0.4 mg capsule 0.4 mg PO DAILY Qty: 7 RF: 0 hydrocodone-acetaminophen [Christmas] 5-325 mg tablet 1 tab PO Q6H PRN (Reason: pain) Qty: 10 RF: 0 No Action pantoprazole [Protonix] 40 mg tablet,delayed release (DR/EC) 40 mg PO DAILY Qty: 30 RF: 0 Referrals: Eber Diop MD [Physician] -
--- NOTE | 2020-02-08 07:44 | DI.CT.S_ITS ---
PROCEDURE: CT ABDOMEN PELVIS W CON INDICATIONS: RLQ pain, likely stone but feels different TECHNIQUE: After the administration of intravenous contrast, 5 mm thick sections acquired from the diaphragm to the symphysis. 5 mm coronal and sagittal reformats were acquired. For radiation dose reduction, the following was used: automated exposure control, adjustment of mA and/or kV according to patient size. COMPARISON: [facility], CT, CT ABDOMEN PELVIS W CON, 05/08/2018, 19:36. FINDINGS: Image quality: Excellent. ABDOMEN: Lung bases: Lung bases are clear. Heart size is normal. Solid organs: Liver is normal in size and enhancement. Gallbladder appears normal . Biliary system is non dilated. Pancreas enhances normally. Spleen is normal in size and enhancement. No adrenal nodules. Kidneys demonstrate normal size and enhancement, without hydronephrosis. 2 small right collecting system stones are present measuring 2 mm each. A similar size stone on the left is present. Peritoneum and bowel: Bowel loops demonstrate normal wall thickness and caliber. No free fluid or air. Nodes and vessels: No retroperitoneal or mesenteric adenopathy by size criteria. Aorta and inferior vena cava are normal in size. Miscellaneous: No ventral hernias. PELVIS: Genitourinary: Bladder wall thickness is normal. Suspect far distal 1mm right ureteral stone seen on series 2 image 77. Miscellaneous: No inguinal hernias or adenopathy. Suspect Bones: No suspicious bony lesions. No vertebral body compression fractures. IMPRESSION: Probable distal right ureteral stone measuring 1 mm, faintly seen, at the bladder margin. Added nonobstructive stones in each renal collecting system. No hydronephrosis. Dictated by: Virgil Newton M.D. on 02/08/2020 at 8:10 Approved by: Virgil Newton M.D. on 02/08/2020 at 8:20
[2020-02-08 07:52] LABS: Amorphous Sediment Urine 3+; Bacteria Urine Moderate (10-30); Culture Indicated Urine Cult Not Indicated; RBC Urine 10-30/HPF (0-5/HPF); WBC Urine 1-5/HPF (0-5/HPF)
[2020-02-08 08:40] VITALS: BP 134/86; PULSE 73; RESP 14; O2SAT 99
[2020-02-08] MEDS: TAMSULOSIN 0.4 MG CAPSULE PO (09:10)
[2020-02-08 09:24] VITALS: BP 122/82; PULSE 74; RESP 18; O2SAT 98
== END 2020-02-08 09:29 | disposition home or self-care (01) ==
PROVIDERS: Emergency Provider Emergency Medicine
DX: N20.1 Calculus of ureter (principal)
CPT/HCPCS: 36415; 74177; 80053; 81001; 83690; 85025; 96361; 96374; 96375; 99284; J1885; J2405

== ENCOUNTER 2020-06-04 15:13 | Emergency (ER) | payer OTHER, MEDICAID, SELFPAY ==
[2019-12-20 18:52] VITALS: BMI 31.5
[2020-06-04 15:17] VITALS: BP 125/76; PULSE 76; RESP 12; TEMP 37.2; O2SAT 97; BMI 30.4
--- NOTE | 2020-06-04 15:24 | DI.RAD.S_ITS ---
PROCEDURE: XR SHOULDER RT MIN 2V INDICATIONS: fall and pain TECHNIQUE: 3 views of the shoulder were acquired. COMPARISON: None. FINDINGS: Bones: No fractures or dislocations. No suspicious bony lesions. Visualized ribs appear intact. Soft tissues: No suspicious soft tissue calcifications. IMPRESSION: No acute fracture. No osseous lesion. If symptoms and/or clinical suspicion for pathology persist, further assessment with repeat, or advanced imaging (e.g., CT, MRI, or bone scan) may be helpful for further assessment. Dictated by: Daniela Youngblood M.D. on 06/04/2020 at 15:55 Approved by: Daniela Youngblood M.D. on 06/04/2020 at 15:56
[2020-06-04] MEDS: KETOROLAC 60 MG/2 ML VIAL 30 MG IM (16:08)
--- NOTE | 2020-06-04 16:30 | PC.NURSE ---
patient had multiple falls while skateboarding. he complains of soreness all over his right shoulder. x ray is negative for fractures.
[2020-06-04 16:38] VITALS: PULSE 72; O2SAT 100
[2020-06-04] MEDS: CYCLOBENZAPRINE 10 MG TABLET PO (16:52)
[2020-06-04] MEDS: LIDOCAINE PATCH 1 EACH ADH..PATCH TOP (16:52)
--- NOTE | 2020-06-04 17:14 | PC.NURSE ---
patient's pain was uncontrolled whit a 30mg toradol IM injection
[2020-06-04 17:49] VITALS: BP 120/85; PULSE 75; RESP 14; O2SAT 97
--- NOTE | 2020-06-04 19:04 | ED_ITS ---
HPI - Extremity Injury (Upper) <DANIKA Newberry-BC - Last Filed: 06/04/20 19:08> General Chief Complaint: Extremity Injury, Upper Stated Complaint: shoulder/collar bone R geraldine, skating fall yesterday Time Seen by Provider: 06/04/20 15:24 Source: family Mode of arrival: Ambulatory Limitations: no limitations History of Present Illness HPI narrative: The patient is a 29-year-old male current some day smoker who denies pertinent medical history who presents with a chief complaint of right shoulder pain. He states he fell while skateboarding yesterday multiple times, falling backward and catching himself with his right arm. He did not hit his head, denies any neck or back pain, has not taken anything for pain prior to arrival other than 400 mg of ibuprofen. He states he has range of motion, but has significant pain when he lifts up his arm. He has not applied ice. Related Data Previous Rx's Medication Instructions Recorded pantoprazole [Protonix] 40 mg PO DAILY #30 tab 12/21/19 hydrocodone-acetaminophen [Harper] 1 tab PO Q6H PRN #10 tab 02/08/20 tamsulosin [Flomax] 0.4 mg PO DAILY #7 cap 02/08/20 cyclobenzaprine 10 mg PO TID PRN #14 tab 06/04/20 lidocaine 1 patch TOPICAL DAILY PRN #15 ea 06/04/20 Allergies Allergy/AdvReac Type Severity Reaction Status Date / Time No Known Drug Allergies Allergy Verified 06/04/20 15:16 Review of Systems <DANIKA Newberry-BC - Last Filed: 06/04/20 19:08> Review of Systems Narrative: GENERAL: Denies chills, fatigue, malaise, fever, sweats. HEENT: Denies sinus pain, ear pain, sore throat, difficulty swallowing, dizziness. RESPIRATORY: Denies dyspnea, cough, wheezing, hemoptysis, sputum. CARDIOVASCULAR: Denies chest pain, palpitations, orthopnea, edema, GASTROINTESTINAL: Denies nausea, vomiting, abdominal pain, diarrhea, constipation, melena. : Denies dysuria, frequency, incontinence, hematuria, urinary retention. MUSCULOSKELETAL: See HPI SKIN: Denies rash, skin lesions, or other NEUROLOGIC: Denies weakness, headache, numbness, change in speech, confusion, seizures, incoordination. PSYCHIATRIC: No concerning psychosocial issues. 12 point review of systems is negative except for those stated above Patient History <ROSA Newberry - Last Filed: 06/04/20 19:08> Medical History Alcohol abuse Current smoker Nephrolithiasis Surgical History (Updated 02/08/20 @ 07:47 by Ana Fabian DO) History of lithotripsy No pertinent past surgical history Family History Father Kidney stones Diverticulitis Alcohol abuse Mother No significant medical problems Social History household members: significant other Smoking Status: Current every day smoker Smoking Status: Current every day smoker alcohol intake frequency: 3 or more drinks per day Substance Use Type: marijuana Exam <ROSA Newberry - Last Filed: 06/04/20 19:08> Narrative Exam Narrative: GENERAL: This is a well-nourished, well-developed patient, in no acute distress HEAD: Atraumatic. Normocephalic. No temporal or scalp tenderness. EYES: Pupils equal round and reactive. Extraocular motions intact. No scleral icterus. No injection or drainage. ENT: Nose without bleeding, purulent drainage or septal hematoma. Wearing a mask Airway patent. NECK: Trachea midline. No JVD or lymphadenopathy. Supple, nontender, no meningeal signs. CARDIOVASCULAR: Regular rate and rhythm RESPIRATORY: Clear to auscultation. Breath sounds equal bilaterally. No wheezes, rales, or rhonchi. No cough. No increased respiratory effort. No accessory muscle use. EXTREMITIES: Diffuse pain to palpation noted right shoulder, pain to palpation of AC joint, decreased range of motion all [place], negative empty can test, positive right radial pulse BACK: Nontender without deformity or crepitance. No flank tenderness. No pain to CT or L-spine palpation, no palpable step-offs or deformities. NEURO: AOx3. SKIN: No rash or erythema on visible skin Initial Vital Signs Initial Vital Signs: Vital Signs Temperature 99.0 F 06/04/20 15:17 Pulse Rate 76 06/04/20 15:17 Respiratory Rate 12 06/04/20 15:17 Blood Pressure 125/76 06/04/20 15:17 Pulse Oximetry 97 06/04/20 15:17 <Ana Fabian DO - Last Filed: 06/06/20 13:23> Initial Vital Signs Initial Vital Signs: Vital Signs Temperature 99.0 F 06/04/20 15:17 Pulse Rate 76 06/04/20 15:17 Respiratory Rate 12 06/04/20 15:17 Blood Pressure 125/76 06/04/20 15:17 Pulse Oximetry 97 06/04/20 15:17 Scores <ROSA Newberry - Last Filed: 06/04/20 19:08> GCS Laureano coma scale eye opening: Spontaneous [place] coma scale verbal response: Orientated [place] coma scale motor response: Obey commands [place] coma scale total score: 15 Course <ROSA Newberry - Last Filed: 06/04/20 19:08> Orders Ordered: Discontinued Medications Cyclobenzaprine HCl (Cyclobenzaprine 10 Mg Tablet) 10 mg PO NOW ONE Stop: 06/04/20 16:46 Last Admin: 06/04/20 16:52 Dose: 10 mg Documented by: JESS Ketorolac Tromethamine (Ketorolac 60 Mg/2 Ml Vial) 30 mg IM NOW ONE Stop: 06/04/20 15:54 Last Admin: 06/04/20 16:08 Dose: 30 mg Documented by: JESS Lidocaine (Lidocaine Patch 1 Each Adh..Patch) 1 each TOP NOW ONE Stop: 06/04/20 16:46 Last Admin: 06/04/20 16:52 Dose: 1 each Documented by: JESS Lidocaine (Remove Lidocaine Patch) 1 each TOP BEDTIME ANA Vital Signs Vital signs: Vital Signs - 8 hr 06/04/20 15:17 06/04/20 16:38 06/04/20 17:49 Temperature 99.0 F Pulse Rate 76 72 75 Respiratory Rate 12 14 Blood Pressure 125/76 120/85 Pulse Oximetry 97 100 97 <Ana Fabian DO - Last Filed: 06/06/20 13:23> Orders Ordered: Discontinued Medications Cyclobenzaprine HCl (Cyclobenzaprine 10 Mg Tablet) 10 mg PO NOW ONE Stop: 06/04/20 16:46 Last Admin: 06/04/20 16:52 Dose: 10 mg Documented by: JESS Ketorolac Tromethamine (Ketorolac 60 Mg/2 Ml Vial) 30 mg IM NOW ONE Stop: 06/04/20 15:54 Last Admin: 06/04/20 16:08 Dose: 30 mg Documented by: JESS Lidocaine (Lidocaine Patch 1 Each Adh..Patch) 1 each TOP NOW ONE Stop: 06/04/20 16:46 Last Admin: 06/04/20 16:52 Dose: 1 each Documented by: JESS Lidocaine (Remove Lidocaine Patch) 1 each TOP BEDTIME ANA Vital Signs Vital signs: Vital Signs - 8 hr 06/04/20 15:17 06/04/20 16:38 06/04/20 17:49 Temperature 99.0 F Pulse Rate 76 72 75 Respiratory Rate 12 14 Blood Pressure 125/76 120/85 Pulse Oximetry 97 100 97 MDM - Extremity Injury (Upper) <ROSA Newberry - Last Filed: 06/04/20 19:08> Imaging Data Extremity x-ray #1: Radiologist's Impression: [address] [place] [id number] ReportSigned Patient: Brian Massey TMR#: [id number]: [id number]:[id number]/Sex: 29 / MDate of Service: 06/04/20Loc: EDAccession Number: [id number] Procedure: XR shoulder RT min 2V Ordering Provider: Ana Fabian D.O. PROCEDURE: XR SHOULDER RT MIN 2V INDICATIONS: fall and pain TECHNIQUE: 3 views of the shoulder were acquired. COMPARISON: None. FINDINGS: Bones: No fractures or dislocations. No suspicious bony lesions. Visualized ribs appear intact. Soft tissues: No suspicious soft tissue calcifications. IMPRESSION: No acute fracture. No osseous lesion. If symptoms and/or clinical suspicion for pathology persist, further assessment with repeat, or advanced imaging (e.g., CT, MRI, or bone scan) may be helpful for further assessment. Dictated by: Daniela Youngblood M.D. on 06/04/2020 at 15:55 Approved by: Daniela Youngblood M.D. on 06/04/2020 at 15:56 [facility] Narrative Medical decision making narrative: The patient is a 29-year-old male who presents with a chief complaint of multiple falls onto an outstretched right hand, resulting in shoulder pain. He has no pain to palpation of his right wrist or elbow, does have reassuring range of motion, negative x-ray is neurovascularly intact throughout his stay in the ER. He feels much improved after the above-stated therapies, particularly the cyclobenzaprine. Thus I did give him prescriptions of cyclobenzaprine and lidocaine patches, held off on ketorolac prescription given his history of GI bleed. Encouraged follow-up with primary care provider as he may need further imaging physical therapy etcetera. Discussed come back to the ER for acute concerns such as decreased circulation. Patient has been neurovascular intact her stay in the emergency department. No questions or concerns upon discharge states understanding return precautions as well as follow-up care. The patient declined work note. Discharge Plan Departure Patient Disposition: Home Clinical Impression: Acute shoulder pain Qualifiers: Laterality: right Qualified Code(s): M25.511 - Pain in right shoulder Instructions: How To Perform RICE (Rest, Ice, Compress, Elevate), DI for Shoulder Sprain, DI for Shoulder Pain Activity Restrictions/Additional Instructions: Thank you for trusting us with your care today As I discussed, your x-ray shows no acute fracture. This does not rule out a soft tissue injury such as a ligament or tendon injury. It is important that you follow up with primary care provider, especially if worsening or no improvement. There can be fractures that did not show up on initial x-ray. Please follow-up with primary care provider. I have given contact information to the [facility] health resource recovery engineer. I did sent 2 prescriptions to [facility]. This includes a muscle relaxer. Do not take this with alcohol or anything sedating. Do not take and drive. I also sent and lidocaine patches. They can be on for 12 hours then off for 12 hours. Please come back to the emergency department for any acute concerns such as decreased circulation to your hand. Please remember to wear a helmet Prescriptions: New cyclobenzaprine 10 mg tablet 10 mg PO TID PRN (Reason: muscle spasm) Qty: 14 RF: 0 lidocaine 5 % adhesive patch,medicated 1 patch topical DAILY PRN (Reason: pain) Qty: 15 RF: 0 No Action pantoprazole [Protonix] 40 mg tablet,delayed release (DR/EC) 40 mg PO DAILY Qty: 30 RF: 0 tamsulosin [Flomax] 0.4 mg capsule 0.4 mg PO DAILY Qty: 7 RF: 0 hydrocodone-acetaminophen [Harper] 5-325 mg tablet 1 tab PO Q6H PRN (Reason: pain) Qty: 10 RF: 0 Referrals: [facility] [Outside] <Ana Fabian DO - Last Filed: 06/06/20 13:23> Cosign ED Attending Luis Antonioature Attestation: I was immediately available in the department for consultation. Documentation has been reviewed.
== END 2020-06-04 17:50 | disposition home or self-care (01) ==
PROVIDERS: Emergency Provider Nurse Practitioner Family
DX: M25.511 Pain in right shoulder (principal); V00.131A Fall from skateboard, initial encounter
CPT/HCPCS: 73030; 96372; 99281; 99283; J1885

== ENCOUNTER 2024-10-11 00:59 | Emergency (ER) | payer OTHER, SELFPAY ==
[2019-12-20 18:52] VITALS: BMI 31.5
[2024-10-11 01:22] VITALS: BP 136/88; PULSE 72; RESP 18; TEMP 36.4; O2SAT 100; BMI 26.6
--- NOTE | 2024-10-11 01:43 | DI.CT.S_ITS ---
PROCEDURE: CT KIDNEY URETER BLADDER (KUB) INDICATIONS: flank pain, Left side TECHNIQUE: CT of the abdomen and pelvis was obtained without intravenous contrast. Coronal and sagittal reformats were performed. For radiation dose reduction, the following was used: automated exposure control, adjustment of mA and/or kV according to patient size. COMPARISON: None. FINDINGS: Image quality: Diagnostic. Lower Chest: No significant findings. ABDOMEN: Liver: No contour-deforming mass. Gallbladder: No radiopaque gallstones or wall thickening. Biliary ducts: No biliary dilation. Pancreas: No ductal dilation. Spleen: Size is within normal limits. Adrenal Glands: No adrenal nodules. Kidneys and Ureters: No hydronephrosis. No contour-deforming mass. Moderate burden of nonobstructing left-sided nephrolithiasis, largest stone measuring 6 millimeters. Small burden of punctate nonobstructing right-sided nephrolithiasis. Stomach and Bowel: Normal colonic caliber, without significant wall thickening. Normal appendix. Fecal debris within the small bowel. Colonic diverticulosis without evidence of diverticulitis. Peritoneum: No abnormal intraperitoneal fluid. No free air. Ventral Wall: No significant hernia. Abdominal Nodes: No retroperitoneal or mesenteric adenopathy by size criteria. Vessels: Aorta and inferior vena cava are normal in size. PELVIS: Pelvic Organs: Unremarkable. Bladder: Unremarkable. Pelvic Nodes: No enlarged lymph nodes. Miscellaneous: No inguinal hernias are seen. Bones: No aggressive osseous abnormality. IMPRESSION: Small to moderate burden of bilateral nonobstructing nephrolithiasis. No hydronephrosis. Colonic diverticulosis without evidence of diverticulitis. Fecal debris within the small-bowel, usually indicating small intestinal bacterial overgrowth versus slow transit. Dictated by: Blaze Ridley M.D. on 10/11/2024 at 2:06 Approved by: Blaze Ridley M.D. on 10/11/2024 at 2:09
[2024-10-11] MEDS: KETOROLAC 30 MG/ML VIAL 15 MG IV (01:46)
[2024-10-11] MEDS: ONDANSETRON 4 MG/2 ML INJ IV (01:46)
[2024-10-11] MEDS: SODIUM CHLORIDE 0.9% 1,000 ML 1000 ML IV (01:46)
[2024-10-11 01:49] LABS: Add Manual Diff / Slide Review NO; Hematocrit 39.9 % (41-53); Hemoglobin 13.9 g/dL (13.5-17.5); Lymphocytes Absolute Auto 2000 /uL (1100-4500); Mean Corpuscular HGB Conc 34.7 % (30-36); Mean Corpuscular Hemoglobin 31.9 PG (26-34); Mean Corpuscular Volume 92.1 fL (80-100); Platelet Count 218 X10^3/uL (150-400)
[2024-10-11 02:00] LABS: Alanine Aminotransferase 16 IU/L (<50); Albumin 3.9 g/dL (3.5-5.0); Albumin Globulin Ratio 1.6 (1.0-2.8); Alkaline Phosphatase 61 U/L (38-126); Blood Urea Nitrogen 14 mg/dL (9-20); Calcium 8.8 mg/dL (8.4-10.2); Carbon Dioxide 26 mmol/L (22-32); Chloride 104 mmol/L (98-107); Estimated Glomerular Filt Rate > 60 mL/min (>60); Globulin 2.4 g/dL (1.7-4.1); Glucose 88 mg/dL (70-99); HEMOLYSIS 16 (0-50); Potassium 4.1 mmol/L (3.4-5.1); Sodium 136 mmol/L (137-145); Total Protein 6.3 g/dL (6.3-8.2)
--- NOTE | 2024-10-11 02:35 | ED_ITS ---
HPI - General Adult General Chief complaint: Urogenital-Male Stated complaint: Urinary Symptoms, Back Pain, Abdominal Pain Time Seen by Provider: 10/11/24 01:03 Source: patient Mode of arrival: Ambulatory History of Present Illness HPI narrative: 34-year-old gentleman with a history of prior kidney stones and prior lithotripsy presents complaining of 3 days of pain on his left flank that is worsening to the point he is not able to manage at home with the Flomax and ibuprofen he has been using. He states this feels similar to prior kidney stones most recently had 1 on the right side. He is having nausea, no actual vomiting, no diarrhea no fevers and no overt dysuria Related Data Previous Rx's ?Medication ?Instructions ?Recorded oxycodone-acetaminophen 5 mg-325 1 tab PO Q6H PRN pain #14 tabs 10/11/24 mg tablet Allergies Allergy/AdvReac Type Severity Reaction Status Date / Time No Known Drug Allergies Allergy Verified 08/21/21 12:48 Review of Systems Review of Systems Narrative: Pertinent positive and negative findings as per HPI Patient History Medical History Current smoker Alcohol abuse Nephrolithiasis Surgical History History of lithotripsy No pertinent past surgical history Family History Father Kidney stones Diverticulitis Alcohol abuse Mother No significant medical problems Social History household members: significant other alcohol intake frequency: 3 or more drinks per day Exam Initial Vital Signs Initial Vital Signs: Vital Signs Temperature 97.5 F L 10/11/24 01:22 Pulse Rate 72 10/11/24 01:22 Respiratory Rate 18 10/11/24 01:22 Blood Pressure 136/88 10/11/24 01:22 Pulse Oximetry 100 10/11/24 01:22 Oxygen Delivery Method Room Air 10/11/24 01:22 General: Healthy appearing, in pain but able to cooperate completely with exam HEENT: Moist mucous membranes, normal sclera with reactive pupils, Respiratory: Lungs are clear to auscultation, no wheezing no rales no rhonchi. Full and symmetrical air movement Cardiac: Regular rate and rhythm Abdomen: Soft, nontender, mild left flank pain, no left lower quadrant abdominal pain. No rebound or guarding Skin: Warm and dry, no rashes Neurologic: Grossly neurologically intact with no obvious asymmetries or abnormalities Psych: Cooperative, appropriate insight and affect Course Orders Ordered: ED Orders 10/11/24 01:37 Complete Blood Count AUTO DIFF Stat Comprehensive Metabolic Panel Stat 10/11/24 01:43 CT kidney ureter bladder (KUB) Stat 10/11/24 03:05 Urinalysis and Microscopic Stat Discontinued Medications Hydromorphone HCl (Hydromorphone 1 Mg Inj) 0.5 mg IV NOW ONE Stop: 10/11/24 02:49 Last Admin: 10/11/24 03:03 Dose: 0.5 mg Documented By: JC Sodium Chloride (Normal Saline 0.9%) 1,000 mls @ 1,000 mls/hr IV BOLUS ONE Stop: 10/11/24 02:38 Last Admin: 10/11/24 01:46 Dose: 1,000 mls/hr Documented By: JC Sodium Chloride (Normal Saline 0.9%) 1,000 mls @ 1,000 mls/hr IV BOLUS ONE Stop: 10/11/24 02:42 Last Admin: 10/11/24 03:58 Dose: Not Given Documented By: JC Ketorolac Tromethamine (Ketorolac 30 Mg/Ml Vial) 15 mg IV NOW ONE Stop: 10/11/24 01:40 Last Admin: 10/11/24 01:46 Dose: 15 mg Documented By: JC Ketorolac Tromethamine (Ketorolac 30 Mg/Ml Vial) 15 mg IV NOW ONE Stop: 10/11/24 01:44 Last Admin: 10/11/24 03:05 Dose: Not Given Documented By: JC Ondansetron HCl (Ondansetron 4 Mg/2 Ml Inj) 4 mg IV NOW ONE Stop: 10/11/24 01:40 Last Admin: 10/11/24 01:46 Dose: 4 mg Documented By: JC Vital Signs Vital signs: Vital Signs - 8 hr 10/11/24 01:22 10/11/24 03:02 10/11/24 03:03 Temperature 97.5 F L Pulse Rate 72 57 L 57 L Respiratory Rate 18 16 17 Blood Pressure 136/88 Pulse Oximetry 100 99 99 Oxygen Delivery Method Room Air Room Air 10/11/24 03:03 Temperature Pulse Rate Respiratory Rate Blood Pressure 126/81 Pulse Oximetry Oxygen Delivery Method Medical Decision Making Lab Data 10/11/24 01:37 10/11/24 01:37 Labs: Lab Results 10/11/24 10/11/24 Range/Units 01:37 03:05 WBC 5.1 (4.5-11.0) X10^3/uL RBC 4.34 L (4.5-5.9) X10^6/uL Hgb 13.9 (13.5-17.5) g/dL Hct 39.9 L (41-53) % MCV 92.1 (80-100) fL MCH 31.9 (26-34) PG MCHC 34.7 (30-36) % RDW 13.6 (11.6-14.8) % Plt Count 218 (150-400) X10^3/uL Neut % (Auto) 45.2 L (50-75) % Lymph % (Auto) 39.5 (25-40) % [place] % (Auto) 8.0 (3-14) % Eos % (Auto) 6.1 H (2-4) % Baso % (Auto) 1.2 (0-2) % Neut # (Auto) 2300 (1623-4473) /uL Lymph # (Auto) 2000 (5245-5938) /uL [place] # (Auto) 400 (0-900) /uL Eos # (Auto) 300 (0-450) /uL Baso # (Auto) 100 (0-100) /uL Sodium 136 L (137-145) mmol/L Potassium 4.1 (3.4-5.1) mmol/L Chloride 104 (98-107) mmol/L Carbon Dioxide 26 (22-32) mmol/L BUN 14 (9-20) mg/dL Creatinine 0.86 (0.66-1.25) mg/dL Estimated GFR > 60 (>60) mL/min BUN/Creatinine Ratio 16.3 (6-22) Glucose 88 (70-99) mg/dL Calcium 8.8 (8.4-10.2) mg/dL Total Bilirubin 0.3 (0.2-1.3) mg/dL AST 20 (17-59) IU/L ALT 16 (<50) IU/L Alkaline Phosphatase 61 (38-126) U/L Total Protein 6.3 (6.3-8.2) g/dL Albumin 3.9 (3.5-5.0) g/dL Globulin 2.4 (1.7-4.1) g/dL Albumin/Globulin Ratio 1.6 (1.0-2.8) Urine Color Yellow Urine Appearance Clear Urine pH 6.5 (4.5-8.0) Ur Specific [place] <=1.005 (1.000-1.035) Urine Protein Negative (Negative) Urine Glucose (UA) Negative (Negative) g/dL Urine Ketones Negative (NEGATIVE) Urine Occult Blood Negative (Negative) Urine Nitrate Negative (Negative) Urine Bilirubin Negative (NEGATIVE) Urine Urobilinogen 0.2 (0.2) E.U./dL Ur Leukocyte Esterase Negative (NEGATIVE) Urine RBC None seen (0-5/HPF) Urine WBC 0-1/hpf (0-5/HPF) Ur Squamous Epith Cells None seen (0-5/HPF) Calcium Oxalate Crystal Occasional H Urine Bacteria None seen (None) Ur Culture Indicated? Cult not indicated Vol Urine Centrifuged 10ml (spun) Imaging Data CT scan - abdomen/pelvis: Radiologist's Impression: PROCEDURE: CT KIDNEY URETER BLADDER (KUB) INDICATIONS: flank pain, Left side TECHNIQUE: CT of the abdomen and pelvis was obtained without intravenous contrast. Coronal and sagittal reformats were performed. For radiation dose reduction, the following was used: automated exposure control, adjustment of mA and/or kV according to patient size. COMPARISON: None. FINDINGS: Image quality: Diagnostic. Lower Chest: No significant findings. ABDOMEN: Liver: No contour-deforming mass. Gallbladder: No radiopaque gallstones or wall thickening. Biliary ducts: No biliary dilation. Pancreas: No ductal dilation. Spleen: Size is within normal limits. Adrenal Glands: No adrenal nodules. Kidneys and Ureters: No hydronephrosis. No contour-deforming mass. Moderate burden of nonobstructing left-sided nephrolithiasis, largest stone measuring 6 millimeters. Small burden of punctate nonobstructing right-sided nephrolithiasis. Stomach and Bowel: Normal colonic caliber, without significant wall thickening. Normal appendix. Fecal debris within the small bowel. Colonic diverticulosis without evidence of diverticulitis. Peritoneum: No abnormal intraperitoneal fluid. No free air. Ventral Wall: No significant hernia. Abdominal Nodes: No retroperitoneal or mesenteric adenopathy by size criteria. Vessels: Aorta and inferior vena cava are normal in size. PELVIS: Pelvic Organs: Unremarkable. Bladder: Unremarkable. Pelvic Nodes: No enlarged lymph nodes. Miscellaneous: No inguinal hernias are seen. Bones: No aggressive osseous abnormality. IMPRESSION: Small to moderate burden of bilateral nonobstructing nephrolithiasis. No hydronephrosis. Colonic diverticulosis without evidence of diverticulitis. Fecal debris within the small-bowel, usually indicating small intestinal bacterial overgrowth versus slow transit. MDM Narrative Medical decision making narrative: 34-year-old gentleman presents with 3 days of increasing flank pain concern for kidney stone. Similar symptoms on the right. At home he has been using Flomax and ibuprofen and pain is escalating to the point he needs additional assistance. CBC is unremarkable Chemistries are reassuring normal renal function Urinalysis is reassured CT scan shows multiple nonobstructing stones bilateral kidneys, no obvious hydronephrosis. Wondering if he has been passing small bits of debris which is causing the irritation. He is certainly does have moderate stool load which is likely contributing to pain as well. In discussing these findings, he notes that every time he gets kidney stones he has significant constipation with or without use of narcotics. Pain has been adequately controlled with fluids, Dilaudid, Percocet, Toradol. I believe part of his pain is likely due to ureterolithiasis without evidence of obstructing stone today. We will ask him to continue staying well hydrated, using Flomax, ibuprofen and Tylenol and Percocet as needed. We also talked constipation in making sure that he is using both a stool softener and a laxative to completely empty his colon to minimize pain from that as well. Currently no evidence of diverticulitis, appendicitis, sepsis, urinary tract infection or pyelonephritis. There is no indication for hospitalization or further workup today. He is safe for discharge Discharge Plan Departure Patient Disposition: Home Clinical Impression: Bilateral kidney stones Constipation Qualifiers: Constipation type: unspecified constipation type Qualified Code(s): K59.00 - Constipation, unspecified Instructions: DI for Kidney Infection, DI for Constipation Activity Restrictions/Additional Instructions: Thank you for coming in today You do still have multiple kidney stones that are not blocking and should not be causing significant trouble in both your kidneys. Neither side is completely blocked at this time. I am wondering if you are passing some gravel type stones which is causing your pain and irritation but not causing any acute obstruction. The pain is clearly causing your bowels to slow down which is why you are having constipation. The constipation is only contributing to the overall symptoms Using 400 mg of ibuprofen (2 [id number] pills) and 1 Tylenol every 6 hours can be very helpful in controlling pain. For severe pain you can add 1 Percocet to this combination Prescription for Percocet was electronically transmitted to [facility] in [place] It is very important that you manage your constipation when you were hurting and using narcotics. I would recommend 1-2 cap fulls of MiraLax everyday anymore hurting or using narcotics and if you still have not had a bowel movement than some milk of magnesia in the evening. Please do continue Flomax If you find that you are getting worse or develop any new symptoms, please feel free to return to the emergency department for further evaluation. Prescriptions: New oxycodone-acetaminophen 5-325 mg tablet 1 tab PO Q6H PRN (Reason: pain) Qty: 14 0RF Referrals: Miscellaneous,Doctor, MD [Primary Care Provider, Medical] Stand Alone Forms: Patient Portal/API
[2024-10-11 03:02] VITALS: PULSE 57; RESP 16; O2SAT 99
[2024-10-11 03:03] VITALS: BP 126/81; PULSE 57; RESP 17; O2SAT 99
[2024-10-11] MEDS: HYDROMORPHONE 1 MG INJ 0.5 MG IV (03:03)
[2024-10-11 03:18] LABS: Appearance Urine UA CLEAR; Bilirubin Urine UA NEGATIVE (NEGATIVE); Color Urine UA YELLOW; Glucose Urine UA NEGATIVE (Negative); Ketones Urine UA NEGATIVE (NEGATIVE); Leukocyte Esterase Urine UA NEGATIVE (NEGATIVE); Nitrite Urine UA NEGATIVE (Negative); Occult Blood Urine UA NEGATIVE (Negative); Protein Urine UA NEGATIVE (Negative); Specific Gravity Urine UA <=1.005 (1.000-1.035); Urobilinogen Urine UA 0.2 E.U./dL (0.2); pH Urine UA 6.5 (4.5-8.0)
[2024-10-11 03:20] LABS: Culture Indicated Urine Cult Not Indicated
[2024-10-11 03:30] VITALS: BP 113/68; PULSE 54; RESP 15; O2SAT 96
[2024-10-11 04:00] VITALS: BP 115/73; PULSE 54; RESP 12; O2SAT 98
[2024-10-11] MEDS: OXYCODONE/ACETAMINOPHEN 5/325 TABLET 2 TAB PO (04:20)
[2024-10-11] MEDS: OXYCODONE/APAP 5/325 PREPACK 1 BOTTLE MISC (04:20)
== END 2024-10-11 04:27 | disposition home or self-care (01) ==
PROVIDERS: Emergency Provider Emergency Medicine
DX: N20.0 Calculus of kidney (principal); K59.00 Constipation, unspecified; Z87.442 Personal history of urinary calculi
CPT/HCPCS: 36415; 74176; 80053; 81001; 85025; 96361; 96374; 96375; 99284; J1171; J1885; J2405

== ENCOUNTER 2025-02-20 00:08 | Emergency (ER) | payer SELFPAY ==
[2019-12-20 18:52] VITALS: BMI 31.5
[2025-02-20] VITALS (11 sets, daily range): BP systolic 115–129; BP diastolic 63–78; PULSE 67–93; RESP 16–18; TEMP 37.4; O2SAT 91–99; BMI 27.3
--- NOTE | 2025-02-20 00:21 | DI.CT.S_ITS ---
PROCEDURE: CT ABDOMEN PELVIS WO CON INDICATIONS: Left flank pain TECHNIQUE: CT of the abdomen and pelvis was obtained without intravenous contrast. Coronal and sagittal reformats were performed. For radiation dose reduction, the following was used: automated exposure control, adjustment of mA and/or kV according to patient size. COMPARISON: None. FINDINGS: Image quality: Diagnostic. Lower Chest: No significant findings. ABDOMEN: Liver: No contour-deforming mass. Gallbladder: No radiopaque gallstones or wall thickening. Biliary ducts: No biliary dilation. Pancreas: No ductal dilation. Spleen: Size is within normal limits. Adrenal Glands: No adrenal nodules. Kidneys and Ureters: Bilateral nonobstructing renal calculi. 5 mm distal left ureter obstructing calculus (2/119) with moderate upstream hydroureteronephrosis. No contour-deforming mass. Stomach and Bowel: Normal colonic caliber, without significant wall thickening. Normal caliber appendix. Sigmoid diverticulosis without acute inflammation. Peritoneum: No abnormal intraperitoneal fluid. No free air. Ventral Wall: No significant hernia. Abdominal Nodes: No retroperitoneal or mesenteric adenopathy by size criteria. Vessels: Aorta and inferior vena cava are normal in size. PELVIS: Pelvic Organs: Unremarkable. Bladder: Unremarkable. Pelvic Nodes: No enlarged lymph nodes. Miscellaneous: No inguinal hernias are seen. Bones: No aggressive osseous abnormality. IMPRESSION: Left distal 5 mm obstructing ureteral calculus with moderate upstream hydroureteronephrosis. Colonic diverticulosis without CT evidence of acute diverticulitis. Approved by: Ivana Lang M.D.,Ph.D. on 02/20/2025 at 1:13
--- NOTE | 2025-02-20 00:21 | ED.ABDPAIN ---
HPI - Abdominal Pain General Chief Complaint: Abdominal Pain Stated Complaint: Poss Kidney stone, Lt side pain, N Time Seen by Provider: 02/20/25 00:21 History of Present Illness HPI narrative: 34-year-old male with a past medical history of nephrolithiasis requiring prior lithotripsy presents to the ED from home for evaluation of left-sided flank pain similar to when he has had kidney stones, does endorse some nausea, patient follows with urology in [place], he states he has also had history of stents to his right, says that he last saw his urologist 3 months ago for a follow up states that everything was fine but states that he does have known kidney stones, he states that the pain started past few days states however it has now become unbearable for came into the ED for further evaluation treatment. Related Data Previous Rx's ?Medication ?Instructions ?Recorded oxycodone-acetaminophen 5 mg-325 1 tab PO Q6H PRN pain #14 tabs 10/11/24 mg tablet ondansetron 4 mg disintegrating 4 mg PO Q8H PRN nausea and 02/20/25 tablet vomiting 1 week #21 tabs oxycodone-acetaminophen 5 mg-325 1 tab PO Q8H PRN pain 3 days #9 02/20/25 mg tablet (Percocet) tabs Allergies Allergy/AdvReac Type Severity Reaction Status Date / Time No Known Drug Allergies Allergy Verified 02/20/25 00:31 Review of Systems Review of Systems Narrative: General: Denies fever, chills, weight loss HEENT: Denies headache, eye drainage, eye irritation, head trauma, sore throat, voice change Cardiovascular: Denies any chest pain, palpitations, tachycardia Respiratory: Denies any shortness of breath, cough, wheeze, stridor GI/: Positive Left-sided flank pain Denies any abdominal pain, vomiting, diarrhea, bright red blood per rectum, melanotic stools, urinary frequency, urinary retention, dysuria, hematuria MSK: Denies any joint pain, muscle pains, swelling Skin: Denies any rashes, lesions, discoloration Neuro: Denies any headache, lightheadedness, dizziness, fainting, weakness Psych: Denies SI/HI Patient History Medical History Current smoker Alcohol abuse Nephrolithiasis Surgical History History of lithotripsy No pertinent past surgical history Family History Father Kidney stones Diverticulitis Alcohol abuse Mother No significant medical problems Social History household members: significant other Smoking Status: Current every day smoker alcohol intake frequency: 3 or more drinks per day Exam Narrative Exam Narrative: General: Patient is sitting in chair does appear uncomfortable, Cooperative, well-developed, not in acute distress HEENT: Normocephalic, atraumatic, PERRLA, normal sclera, eyelids normal Neck: Active full range of motion, atraumatic Chest: Normal to inspection, negative crepitus, no overlying erythema ecchymosis Respiratory: Normal respiratory effort, not in acute respiratory distress, clear to auscultation bilaterally negative cough, wheeze, tachypnea, rhonchi, rales Cardiology: Regular rate rhythm negative gallop, murmur, rubs GI/: No tenderness to palpation, soft, non rigid, normal to inspection, exam deferred MSK: Full active range of motion in all 4 extremities, atraumatic, no tenderness to palpation of any bony prominences Skin: No rashes or lesions noted Neuro: Alert awake oriented x3, moves all 4 extremities spontaneously, cranial nerves intact, able to answer all questions appropriately follows commands appropriately Psych: Cooperative, negative suicidal or homicidal ideations Initial Vital Signs Initial Vital Signs: Vital Signs Temperature 99.4 F 02/20/25 00:29 Pulse Rate 93 H 02/20/25 00:29 Respiratory Rate 16 02/20/25 00:29 Blood Pressure 128/76 02/20/25 00:29 Pulse Oximetry 99 02/20/25 00:29 Oxygen Delivery Method Room Air 02/20/25 00:29 Course Orders Ordered: ED Orders 02/20/25 00:21 CT abdomen pelvis wo con Stat 02/20/25 00:45 CBC Auto Diff [Complete Blood Count AUTO DIFF] Stat CMP [Comprehensive Metabolic Panel] Stat 02/20/25 02:26 Urinalysis and Microscopic Stat Discontinued Medications Sodium Chloride (Normal Saline 0.9%) 1,000 mls @ 1,000 mls/hr IV BOLUS ONE Stop: 02/20/25 01:20 Last Infusion: 02/20/25 02:15 Dose: Infused Documented By: Admin: 02/20/25 00:49 Dose: 1,000 mls/hr Documented By: VIOLETTA Sodium Chloride (Normal Saline 0.9%) 1,000 mls @ 1,000 mls/hr IV BOLUS ONE Stop: 02/20/25 03:03 Last Admin: 02/20/25 02:14 Dose: 1,000 mls/hr Documented By: VIOLETTA Ketorolac Tromethamine (Ketorolac 30 Mg/Ml Vial) 30 mg IV NOW ONE Stop: 02/20/25 00:22 Last Admin: 02/20/25 00:49 Dose: 30 mg Documented By: VIOLETTA Morphine Sulfate (Morphine 4 Mg/Ml Inj) 4 mg IV NOW ONE Stop: 02/20/25 00:39 Last Admin: 02/20/25 00:52 Dose: 4 mg Documented By: VIOLTETA Morphine Sulfate (Morphine 4 Mg/Ml Inj) 4 mg IV NOW ONE Stop: 02/20/25 01:28 Last Admin: 02/20/25 01:58 Dose: 4 mg Documented By: VIOLETTA Ondansetron HCl (Ondansetron 4 Mg/2 Ml Inj) 4 mg IV NOW ONE Stop: 02/20/25 00:22 Last Admin: 02/20/25 00:49 Dose: 4 mg Documented By: VIOLETTA Tamsulosin HCl (Tamsulosin 0.4 Mg Capsule) 0.4 mg PO NOW ONE Stop: 02/20/25 01:24 Last Admin: 02/20/25 01:58 Dose: 0.4 mg Documented By: VIOLETTA Vital Signs Vital signs: Vital Signs - 8 hr 02/20/25 00:29 02/20/25 00:42 02/20/25 00:58 Temperature 99.4 F Pulse Rate 93 H 89 Respiratory Rate 16 Blood Pressure 128/76 129/65 Pulse Oximetry 99 91 Oxygen Delivery Method Room Air 02/20/25 01:00 02/20/25 01:00 02/20/25 01:30 Temperature Pulse Rate 86 Respiratory Rate Blood Pressure 116/63 115/78 Pulse Oximetry 95 Oxygen Delivery Method 02/20/25 01:30 02/20/25 02:00 02/20/25 02:00 Temperature Pulse Rate 79 87 Respiratory Rate Blood Pressure 122/70 Pulse Oximetry 96 98 Oxygen Delivery Method 02/20/25 02:30 Temperature Pulse Rate 76 Respiratory Rate 18 Blood Pressure Pulse Oximetry 97 Oxygen Delivery Method MDM - Abdominal Pain Lab Data 02/20/25 00:45 02/20/25 00:45 Labs: Lab Results 02/20/25 Range/Units 00:45 WBC 12.5 H (4.5-11.0) X10^3/uL RBC 5.14 (4.5-5.9) X10^6/uL Hgb 15.6 (13.5-17.5) g/dL Hct 45.9 (41-53) % MCV 89.3 (80-100) fL MCH 30.3 (26-34) PG MCHC 34.0 (30-36) % RDW 14.1 (11.6-14.8) % Plt Count 254 (150-400) X10^3/uL Neut % (Auto) 75.3 H (50-75) % Lymph % (Auto) 18.7 L (25-40) % [place] % (Auto) 3.8 (3-14) % Eos % (Auto) 1.7 L (2-4) % Baso % (Auto) 0.5 (0-2) % Neut # (Auto) 9400 H (6953-9180) /uL Lymph # (Auto) 2300 (1778-0552) /uL [place] # (Auto) 500 (0-900) /uL Eos # (Auto) 200 (0-450) /uL Baso # (Auto) 100 (0-100) /uL Sodium 143 (137-145) mmol/L Potassium 4.0 (3.4-5.1) mmol/L Chloride 105 (98-107) mmol/L Carbon Dioxide 26 (22-32) mmol/L BUN 15 (9-20) mg/dL Creatinine 0.89 (0.66-1.25) mg/dL Estimated GFR > 60 (>60) mL/min BUN/Creatinine Ratio 16.9 (6-22) Glucose 96 (70-99) mg/dL Calcium 9.4 (8.4-10.2) mg/dL Total Bilirubin 0.2 (0.2-1.3) mg/dL AST 27 (17-59) IU/L ALT 17 (<50) IU/L Alkaline Phosphatase 52 (38-126) U/L Total Protein 8.1 (6.3-8.2) g/dL Albumin 4.9 (3.5-5.0) g/dL Globulin 3.2 (1.7-4.1) g/dL Albumin/Globulin Ratio 1.5 (1.0-2.8) MDM Narrative Medical decision making narrative: 34-year-old male with a past medical history of nephrolithiasis requiring stent and lithotripsy in the past presenting for left-sided flank pain similar to whenever he has had urolithiasis. He states that he follows with urology in [facility], states that he last saw them 3 months ago her routine follow up and everything was fine at that time. Patient stating symptoms started a few days ago but really got worse today therefore came into the ED for further evaluation treatment. States it feels exactly similar to whenever he has a passing kidney stone. He states that he does know that he had some kidney stones from his previous CT scans. He does endorse nausea but no vomiting. Patient had lab work urinalysis CT scan performed here in the emergency department. CT scan did show a 5 mm urolithiasis did see some moderate hydro ureteral nephrosis however patient with normal kidney function no electrolyte abnormality on Chem panel. Patient did have a slight elevation in his leukocytes at 12.5, patient's urine without any signs of acute urinary tract infection. Patient will be discharged home with symptomatic relief, also discharged home with prophylactic antibiotics, he was instructed to follow up with his urologist in outpatient setting verbalized understanding of this and agrees to being discharged home with outpatient follow up Discharge Plan Departure Patient Disposition: Home Clinical Impression: Urolithiasis Instructions: DI for Kidney Stones Activity Restrictions/Additional Instructions: Please follow up with your urologist Please read the discharge instructions sheet carefully and bring all papers to all doctor follow-up visits, as it may contain information that your doctor may want to see. Disease processes change and evolve, if your symptoms worsen or if you develop any new symptoms that are concerning to you please return for evaluation. Your evaluation today does not show any evidence of any life-threatening/serious illnesses requiring admission to the hospital or surgery. Please follow-up with your doctor for re-evaluation in approximately 1 day. Seek immediate medical attention for any worrisome symptoms. *If you do not have a primary care provider please contact the [facility] Resource line at [phone]. They will ask some questions about your medical history and help get you set up with a doctor in the community. Prescriptions: New oxycodone-acetaminophen [Percocet] 5-325 mg tablet 1 tab PO Q8H PRN (Reason: pain) 3 Days Qty: 9 0RF ondansetron 4 mg tablet,disintegrating 4 mg PO Q8H PRN (Reason: nausea and vomiting) 7 Days Qty: 21 0RF No Action oxycodone-acetaminophen 5-325 mg tablet 1 tab PO Q6H PRN (Reason: pain) Qty: 14 0RF Referrals: Miscellaneous,Doctor, MD [Primary Care Provider, Medical] Stand Alone Forms: Patient Portal/API
[2025-02-20] MEDS: ONDANSETRON 4 MG/2 ML INJ IV (00:49)
[2025-02-20] MEDS: KETOROLAC 30 MG/ML VIAL IV (00:49)
[2025-02-20] MEDS: SODIUM CHLORIDE 0.9% 1,000 ML 1000 ML IV ×2 (00:49→02:14)
[2025-02-20] MEDS: MORPHINE 4 MG/ML INJ IV ×2 (00:52→01:58)
[2025-02-20 00:59] LABS: Add Manual Diff / Slide Review NO; Hematocrit 45.9 % (41-53); Hemoglobin 15.6 g/dL (13.5-17.5); Lymphocytes Absolute Auto 2300 /uL (1100-4500); Mean Corpuscular HGB Conc 34.0 % (30-36); Mean Corpuscular Hemoglobin 30.3 PG (26-34); Mean Corpuscular Volume 89.3 fL (80-100); Platelet Count 254 X10^3/uL (150-400)
[2025-02-20 01:03] LABS: Alanine Aminotransferase 17 IU/L (<50); Albumin 4.9 g/dL (3.5-5.0); Albumin Globulin Ratio 1.5 (1.0-2.8); Alkaline Phosphatase 52 U/L (38-126); Blood Urea Nitrogen 15 mg/dL (9-20); Calcium 9.4 mg/dL (8.4-10.2); Carbon Dioxide 26 mmol/L (22-32); Chloride 105 mmol/L (98-107); Estimated Glomerular Filt Rate > 60 mL/min (>60); Globulin 3.2 g/dL (1.7-4.1); Glucose 96 mg/dL (70-99); HEMOLYSIS 18 (0-50); Potassium 4.0 mmol/L (3.4-5.1); Sodium 143 mmol/L (137-145); Total Protein 8.1 g/dL (6.3-8.2)
[2025-02-20] MEDS: TAMSULOSIN 0.4 MG CAPSULE PO (01:58)
[2025-02-20 03:02] LABS: Appearance Urine UA CLEAR; Bilirubin Urine UA NEGATIVE (NEGATIVE); Color Urine UA YELLOW; Glucose Urine UA NEGATIVE (Negative); Ketones Urine UA TRACE (NEGATIVE); Leukocyte Esterase Urine UA NEGATIVE (NEGATIVE); Nitrite Urine UA NEGATIVE (Negative); Occult Blood Urine UA 3+ (Negative); Protein Urine UA TRACE (Negative); Specific Gravity Urine UA 1.020 (1.000-1.035); Urobilinogen Urine UA 0.2 E.U./dL (0.2); pH Urine UA 7.0 (4.5-8.0)
[2025-02-20 03:52] LABS: Culture Indicated Urine Cult Not Indicated
[2025-02-20] MEDS: ONDANSETRON 4 MG ODT PREPACK 1 BOTTLE MISC (04:06)
== END 2025-02-20 04:38 | disposition home or self-care (01) ==
PROVIDERS: Emergency Provider Student in an Organized Health Care Education/Training Program
DX: N13.2 Hydronephrosis with renal and ureteral calculous obstruction (principal); Z87.442 Personal history of urinary calculi
CPT/HCPCS: 36415; 74176; 80053; 81001; 85025; 96374; 96375; 96376; 99284; J1885; J2272; J2405; J7030